=== PATIENT | male | born 1955 | race Caucasian/White ===

== ENCOUNTER 2016-12-01 03:44 | Inpatient (IN) | payer BC ==
[~2016-12-01] VITALS: Ht 175.3 cm; Wt 101.6 kg
[~2016-12-01 03:44] MED LIST: ACET-1256 PO; CLN200 PO; GLC500 PO; GLYUNK; LISI-461 PO; OMEG10007 PO; ZNTT/150 PO
[2016-12-01 04:18] LABS: BASO % 0.4 %; BASO ABS # 0.03 K/uL (0-0.2); COMPLETE YES; EOS % 1.4 %; HEMATOCRIT 44.3 % (42-52); IG% 0.6 %; LYMPH ABS # 1.23 K/uL (1.2-3.4); MEAN CELL VOLUME 86.4 fL (80-100); MEAN CORPUSCULAR HEMOGLOBIN 28.8 pg (25-34); MEAN CORPUSCULAR HGB CONC 33.4 g/dl (32-36); MEAN PLATELET VOLUME 10.8 fL (7.4-10.4); MONO % 10.4 %; NEUT % 70.2 %; PLATELET COUNT 239 K/uL (130-400); RED BLOOD COUNT 5.13 M/uL (4.7-6.1); WHITE BLOOD COUNT 7.23 K/uL (4.8-10.8)
[2016-12-01 04:42] LABS: INR 0.9 (0.9-1.1); PROTHROMBIN TIME (PATIENT) 9.4 SECONDS (9.0-12.0)
[2016-12-01] MEDS ORDERED: TRAM-10 PO (04:55)
[2016-12-01] MEDS ORDERED: GLYB5TAB8 PO (04:55)
[2016-12-01] MEDS ORDERED: ATOR10TA82 PO (04:55)
[2016-12-01] MEDS ORDERED: METF-384 PO (04:55)
[2016-12-01] MEDS ORDERED: SULI200T4 PO (04:55)
[2016-12-01 04:56] LABS: ALKALINE PHOSPHATASE 90 U/L (45-117); ALT/SGPT 31 U/L (12-78); BLOOD UREA NITROGEN 20 mg/dl (7-18); BUN/CREATININE RATIO 20.5 (10-20); CARBON DIOXIDE 26 mmol/L (21-32); CHLORIDE 107 mmol/L (98-107); CREATININE 0.96 mg/dl (0.60-1.40); GLUCOSE 189 mg/dl (70-99); SODIUM 142 mmol/L (136-145)
[2016-12-01 05:00] LABS: POTASSIUM 4.5 mmol/L (3.5-5.1)
[2016-12-01 05:09] LABS: AST/SGOT 16 U/L (15-37); CKMB/CK RATIO 3.3 (0-3.0)
[2016-12-01 05:35] LABS: URINE APPEARANCE CLEAR (CLEAR); URINE BILIRUBIN NEG (NEG); URINE COLOR YELLOW; URINE NITRITE NEG (NEG); URINE SPECIFIC GRAVITY 1.021 (1.000-1.030); UROBILINOGEN NEG (NEG); ZZUR CULT IF INDIC CLEAN CATCH NO
[2016-12-01 05:37] LABS: MANUAL MICROSCOPIC REQUIRED? NO; REVIEW REQ? NO
--- NOTE | 2016-12-01 06:35 | DIAGNOSTIC IMAGING REPORT ---
CHEST ONE VIEW PORTABLE CLINICAL HISTORY: Atypical chest pain and shortness of breath COMPARISON STUDY: May 2008 FINDINGS: The heart is at the upper limits of normal in size. There is no overt failure. There is no focal pulmonary consolidation. There are no pleural effusions.[ IMPRESSION: No active disease in the chest. Electronically signed by: Kiran Harrington M.D. 12/01/2016 6:33 AM Dictated Date/Time: 12/01/2016 6:33 AM
[2016-12-01 06:52] LABS: POINT OF CARE TROPONIN I 0.01 ng/ml (0-0.045)
--- NOTE | 2016-12-01 07:33 | EMERGENCY ROOM VISIT NOTE ---
History Report prepared by Rodo: Jeet Ramos Under the Supervision of: Dr. Claire Paz M.D. 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 Patient was given 324 ASA enroute with EMS History of Present Illness The patient is a 61 year old male who presents to the Emergency Room by EMS with complaints of an episode of chest pain occurring shortly prior to arrival. He has a history of diabetes, hyperlipidemia, and hypertension. He was given aspirin en route. 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 He also complains of shortness of breath and weakness. He denies any pain radiation. He denies any fevers. The patient states that he has been having similar symptoms with exertion for some time now. He states that his shortness of breath has persisted. Source of History: patient Onset: Shortly prior to arrival Position: chest Timing: resolved, other (episode) Associated Symptoms: + SOB, + weakness, No fevers Review of Systems See HPI for pertinent positives & negatives. A total of 10 systems reviewed and were otherwise negative. Past Medical & Surgical Medical Problems: (1) Diabetes (2) GERD (gastroesophageal reflux disease) (3) HTN (hypertension) (4) Hyperlipemia Surgical Problems: (1) S/P appendectomy (2) S/P lumbar fusion Family History No pertinent family history stated. Social History Smoking Status: Never Smoker Marital Status: Housing Status: lives with family Occupation Status: employed Current/Historical Medications Scheduled Atorvastatin (Lipitor), 10 MG PO DAILY Fish Oil ([place]-3), 1 CAP PO BID Glyburide (Micronase), 10 MG PO BID Lisinopril (Zestril), 10 MG PO DAILY Metformin Hcl (Glucophage), 1,000 MG PO BID Ranitidine (Zantac), 150 MG PO BID Sulindac (Clinoril), 200 MG PO BID Scheduled PRN Acetaminophen (Tylenol), 1,000 MG PO TID PRN for Pain or Fever Omeprazole (Prilosec), 20 MG PO DAILY PRN for Indigestion Tramadol (Ultram), 50 MG PO Q8H PRN for Pain Allergies Uncoded Allergies: STERIODS (Allergy, Unknown, "UNABLE TO USE DUE TO TB RX YEARS AGO"., ) Physical Exam Vital Signs Date Time Temp Pulse Resp B/P Pulse Ox O2 Delivery O2 Flow Rate FiO2 12/01/16 07:16 77 16 133/84 96 Room Air 12/01/16 06:32 74 20 136/82 96 Room Air 12/01/16 06:00 77 18 126/77 96 Room Air 12/01/16 04:30 75 20 138/78 97 Room Air 12/01/16 03:55 Room Air 12/01/16 03:54 Room Air 12/01/16 03:51 36.6 78 16 157/82 98 Room Air Physical Exam Vital signs reviewed. General: Obese, well-appearing male, in no significant distress. HEENT: No scleral icterus, PERRLA, neck supple. Atraumatic. Cardiovascular: Regular rate and rhythm, no extra sounds. Pulmonary: Clear to auscultation bilaterally, normal work of breathing. Abdomen: Soft, nontender, nondistended, positive bowel sounds. Musculoskeletal: Atraumatic, no peripheral edema. Neurologic: Patient awake alert and oriented x 3, full strength in all 4 extremities. Cranial nerves 2 through 12 grossly intact. Skin: Warm, dry, no rash Medical Decision & Procedures ER Provider Diagnostic Interpretation: One View Chest X-ray interpreted by me: mild pulmonary vascular congestion. Laboratory Results Test 12/01/16 03:07 12/01/16 05:10 12/01/16 06:31 RDW Standard Deviation 45.9 fL (36.4-46.3) RDW Coefficient of Variation 14.5 % (11.5-14.5) White Blood Count 7.23 K/uL (4.8-10.8) Red Blood Count 5.13 M/uL (4.7-6.1) Hemoglobin 14.8 g/dL (14.0-18.0) Hematocrit 44.3 % (42-52) Mean Corpuscular Volume 86.4 fL (80-100) Mean Corpuscular Hemoglobin 28.8 pg (25-34) Mean Corpuscular Hemoglobin Concent 33.4 g/dl (32-36) Platelet Count 239 K/uL (130-400) Mean Platelet Volume 10.8 fL (7.4-10.4) Neutrophils (%) (Auto) 70.2 % Lymphocytes (%) (Auto) 17.0 % Monocytes (%) (Auto) 10.4 % Eosinophils (%) (Auto) 1.4 % Basophils (%) (Auto) 0.4 % Neutrophils # (Auto) 5.08 K/uL (1.4-6.5) Lymphocytes # (Auto) 1.23 K/uL (1.2-3.4) Monocytes # (Auto) 0.75 K/uL (0.11-0.59) Eosinophils # (Auto) 0.10 K/uL (0-0.5) Basophils # (Auto) 0.03 K/uL (0-0.2) Immature Granulocyte % (Auto) 0.6 % Immature Granulocyte # (Auto) 0.04 K/uL (0.00-0.02) Prothrombin Time 9.4 SECONDS (9.0-12.0) Prothromb Time International Ratio 0.9 (0.9-1.1) Activated Partial Thromboplast Time 26.0 SECONDS (21.0-31.0) Partial Thromboplastin Ratio 1.0 Est Creatinine Clear Calc Drug Dose 94.2 ml/min Total Bilirubin 0.3 mg/dl (0.2-1) Direct Bilirubin 0.1 mg/dl (0-0.2) Aspartate Amino Transf (AST/SGOT) 16 U/L (15-37) Alanine Aminotransferase (ALT/SGPT) 31 U/L (12-78) Alkaline Phosphatase 90 U/L (45-117) Total Creatine Kinase 211 U/L (39-308) Pro-B-Type Natriuretic Peptide 43 pg/ml (0-900) Total Protein 7.9 gm/dl (6.4-8.2) Albumin 4.0 gm/dl (3.4-5.0) Urine Color YELLOW Urine Appearance CLEAR (CLEAR) Urine pH 5.0 (4.5-7.5) Urine Specific [place] 1.021 (1.000-1.030) Urine Protein NEG (NEG) Urine Glucose (UA) NEG (NEG) Urine Ketones NEG (NEG) Urine Occult Blood NEG (NEG) Urine Nitrite NEG (NEG) Urine Bilirubin NEG (NEG) Urine Urobilinogen NEG (NEG) Urine Leukocyte Esterase NEG (NEG) Bedside D-Dimer 159 ng/mlFEU (0-450) Bedside Troponin I 0.010 ng/ml (0-0.045) Laboratory results per my review. 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 The patient was evaluated in room B12B. A complete history and physical examination was performed. 726: Upon reevaluation, the patient is resting comfortably. I discussed laboratory and radiographic results with him. He verbalized agreement of the treatment plan. I spoke with Corina RIVERA of the [facility] Hospitalist Service. The patient will be evaluated for further management and care. Medical Decision DDx: Acute coronary syndrome, pulmonary embolus, aortic dissection, musculoskeletal pain, pneumonia, pleural effusion, pneumothorax This patient was evaluated and appeared to be in no distress. IV access was obtained and laboratory work was drawn. EKG was obtained and reveals no evidence of acute ischemia. Laboratory work is negative. Patient did receive oral aspirin in route. Laboratory work reveals negative cardiac enzymes, negative d-dimer. Patient's case was discussed with the hospitalist service and secondary to his diabetes and chest complaints, he will be evaluated for further management. Consults Time Called: 715 Consulting Physician: Corina RIVERA -Mic Returned Call: [phone] I reviewed the patient's case with Corina RIVERA. Mic will evaluate the patient for further management. Impression Primary Impression: Exertional chest pain Scribe Attestation The scribe's documentation has been prepared under my direction and personally reviewed by me in its entirety. I confirm that the note above accurately reflects all work, treatment, procedures, and medical decision making performed by me. Departure Information Dispostion Being Evaluated By Hospitalist Referrals Nitesh Sellers D.O. (PCP) Patient Instructions My [facility]
[2016-12-01] MEDS ORDERED: OMEP40CA41 PO (08:27)
[2016-12-01] MEDS ORDERED: GLUCAGON FOR INJ 1 MG VIAL SQ PRN (08:30)
[2016-12-01] MEDS ORDERED: ACETAMINOPHEN 325 MG TAB PO PRN (08:30)
[2016-12-01] MEDS ORDERED: GLUCOSE 10 TABS/TUBE PO PRN (08:30)
[2016-12-01] MEDS ORDERED: GLUCOSE 40% GEL 15 GM TUBE PO PRN (08:30)
[2016-12-01] MEDS ORDERED: TRAMADOL HCL 50 MG TAB PO PRN (08:30)
[2016-12-01] MEDS ORDERED: NITROGLYCERIN 0.4 MG SL PER TAB CHARGE SL PRN (08:30)
[2016-12-01] MEDS ORDERED: DEXTROSE 50% 50 ML SYR IV PRN (08:30)
[2016-12-01] MEDS ORDERED: ONDANSETRON INJ 2 MG/ML 2 ML VIAL IV PRN (08:30)
--- NOTE | 2016-12-01 08:45 | History and Physical ---
History & Physical Date & Time of Service: Dec 01, 2016 at 08:32 Chief Complaint: Chest Pain, Shortness of Breath Primary Care Physician: Nitesh Sellers D.O. History of Present Illness 61 year old male who presents to the ER with chest pain and shortness of breath. 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 He describes the chest pain as a pressure and rated it #7/10 at its worst. He reports associated shortness of breath and lightheadedness. He reports the pain resolved with rest but the shortness of breath persisted for a bit. He reports the shortness of breath resolved in the ambulance ride to the hospital. He denies associated nausea or diaphoresis. Patient reports he does get exertional chest pain a few times per week however is not as severe as it was today. He reports he had a stress test a couple of years ago for similar symptoms. Over the past 6 months he has noted leg edema with long periods of walking. He denies orthopnea. He reports he otherwise has been feeling well recently. No abdominal pain, vomiting, or diarrhea. He denies fever and chills. No urinary symptoms. In the ER, patient is currently chest pain free. His initial troponin is negative and EKG is unchanged from prior. Past Medical/Surgical History Medical Problems: (1) Diabetes Status: Chronic (2) GERD (gastroesophageal reflux disease) Status: Chronic (3) HTN (hypertension) Status: Chronic (4) Hyperlipemia Status: Chronic Surgical Problems: (1) S/P appendectomy Status: Chronic (2) S/P lumbar fusion Status: Chronic Family History FH: heart disease FATHER (stents placed in his 70s) BROTHER (stents placed in his late 40s-early 50s) Social History Smoking Status: Never Smoker Alcohol Use: occasionally Occupational Status: employed Immunizations History of Influenza Vaccine: Yes Influenza Vaccine Date: May 30, 2016 History of Tetanus Vaccine?: Yes Tetanus Immunization Date: Feb 23, 2008 History of Pneumococcal: Yes Pneumococcal Date: Aug 25, 2006 Multi-Drug Resistant Organisms History of MDRO: No Allergies Uncoded Allergies: STERIODS (Allergy, Unknown, "UNABLE TO USE DUE TO TB RX YEARS AGO"., ) Home Medications Scheduled Atorvastatin (Lipitor), 10 MG PO DAILY Fish Oil ([place]-3), 1 CAP PO BID Glyburide (Micronase), 10 MG PO BID Lisinopril (Zestril), 10 MG PO DAILY Metformin Hcl (Glucophage), 1,000 MG PO BID Ranitidine (Zantac), 150 MG PO BID Sulindac (Clinoril), 200 MG PO BID Scheduled PRN Acetaminophen (Tylenol), 1,000 MG PO TID PRN for Pain or Fever Omeprazole (Prilosec), 20 MG PO DAILY PRN for Indigestion Tramadol (Ultram), 50 MG PO Q8H PRN for Pain Review of Systems 10 point review of systems was completed with the pertinent positives and negatives noted per the HPI Physical Exam Vital Signs Date Time Temp Pulse Resp B/P Pulse Ox O2 Delivery O2 Flow Rate FiO2 12/01/16 07:42 65 16 126/65 98 Nasal Cannula 12/01/16 07:16 77 16 133/84 96 Room Air 12/01/16 06:32 74 20 136/82 96 Room Air 12/01/16 06:00 77 18 126/77 96 Room Air 12/01/16 04:30 75 20 138/78 97 Room Air 12/01/16 03:55 Room Air 12/01/16 03:54 Room Air 12/01/16 03:51 36.6 78 16 157/82 98 Room Air General Appearance: no apparent distress Head: normocephalic Eyes: normal inspection ENT: hearing grossly normal Neck: supple, no JVD Respiratory/Chest: lungs clear, normal breath sounds, no respiratory distress Cardiovascular: regular rate, rhythm, no edema, normal peripheral pulses Abdomen/GI: normal bowel sounds, non tender, soft Extremities/Musculoskelatal: normal inspection, no calf tenderness Neurologic/Psych: no motor/sensory deficits, alert, normal mood/affect, oriented x 3 Skin: normal color, warm/dry Diagnostics Laboratory Results Results Past 24 Hours Test 12/01/16 03:07 12/01/16 05:10 12/01/16 06:31 Range/Units White Blood Count 7.23 4.8-10.8 K/uL Red Blood Count 5.13 4.7-6.1 M/uL Hemoglobin 14.8 14.0-18.0 g/dL Hematocrit 44.3 42-52 % Mean Corpuscular Volume 86.4 80-100 fL Mean Corpuscular Hemoglobin 28.8 25-34 pg Mean Corpuscular Hemoglobin Concent 33.4 32-36 g/dl Platelet Count 239 130-400 K/uL Mean Platelet Volume 10.8 7.4-10.4 fL Neutrophils (%) (Auto) 70.2 % Lymphocytes (%) (Auto) 17.0 % Monocytes (%) (Auto) 10.4 % Eosinophils (%) (Auto) 1.4 % Basophils (%) (Auto) 0.4 % Neutrophils # (Auto) 5.08 1.4-6.5 K/uL Lymphocytes # (Auto) 1.23 1.2-3.4 K/uL Monocytes # (Auto) 0.75 0.11-0.59 K/uL Eosinophils # (Auto) 0.10 0-0.5 K/uL Basophils # (Auto) 0.03 0-0.2 K/uL RDW Standard Deviation 45.9 36.4-46.3 fL RDW Coefficient of Variation 14.5 11.5-14.5 % Immature Granulocyte % (Auto) 0.6 % Immature Granulocyte # (Auto) 0.04 0.00-0.02 K/uL Prothrombin Time 9.4 9.0-12.0 SECONDS Prothromb Time International Ratio 0.9 0.9-1.1 Activated Partial Thromboplast Time 26.0 21.0-31.0 SECONDS Partial Thromboplastin Ratio 1.0 Sodium Level 142 136-145 mmol/L Potassium Level 4.5 3.5-5.1 mmol/L Chloride Level 107 98-107 mmol/L Carbon Dioxide Level 26 21-32 mmol/L Anion Gap 9.0 3-11 mmol/L Blood Urea Nitrogen 20 7-18 mg/dl Creatinine 0.96 0.60-1.40 mg/dl Est Creatinine Clear Calc Drug Dose 94.2 ml/min Estimated GFR () 98.5 Estimated GFR (Non- 85.0 BUN/Creatinine Ratio 20.5 10-20 Random Glucose 189 70-99 mg/dl Calcium Level 8.0 8.5-10.1 mg/dl Total Bilirubin 0.3 0.2-1 mg/dl Direct Bilirubin 0.1 0-0.2 mg/dl Aspartate Amino Transf (AST/SGOT) 16 15-37 U/L Alanine Aminotransferase (ALT/SGPT) 31 12-78 U/L Alkaline Phosphatase 90 45-117 U/L Total Creatine Kinase 211 39-308 U/L Creatine Kinase MB 6.9 0.5-3.6 ng/ml Creatine Kinase MB Ratio 3.3 0-3.0 Troponin I < 0.015 0-0.045 ng/ml Pro-B-Type Natriuretic Peptide 43 0-900 pg/ml Total Protein 7.9 6.4-8.2 gm/dl Albumin 4.0 3.4-5.0 gm/dl Urine Color YELLOW Urine Appearance CLEAR CLEAR Urine pH 5.0 4.5-7.5 Urine Specific [place] 1.021 1.000-1.030 Urine Protein NEG NEG Urine Glucose (UA) NEG NEG Urine Ketones NEG NEG Urine Occult Blood NEG NEG Urine Nitrite NEG NEG Urine Bilirubin NEG NEG Urine Urobilinogen NEG NEG Urine Leukocyte Esterase NEG NEG Bedside D-Dimer 159 0-450 ng/mlFEU Bedside Troponin I 0.010 0-0.045 ng/ml Diagnostic Radiology CXR IMPRESSION: No active disease in the chest. Impression Assessment and Plan CHEST PAIN - admit to tele - patient presenting with exertional chest pain with associated shortness of breath and lightheadedness, relieved with rest - risk factors: HTN, DM, HLD, + family history - stress 06/2015 - negative for ischemia - initial troponin negative, EKG unchanged from prior - continue to cycle cardiac enzymes, check resting echo - s/p ASA with EMS, will continue with 81mg daily - continue statin - cardio consult, input appreciated HTN - BP controlled, continue Lisinopril DM - hgb a1c 6.4 08/2016 - hold oral agents and utilize SSI while hospitalized HLD - continue statin DVT PROPHYLAXIS - SQ Lovenox DISPO - The patient will be placed as observation status for now until further work up is complete. Attending Note: Patient is a 61 Yr old male with with PMH DM II, HTN, HLP and positive family history of heart disease presents with history of retrosternal, squeezing, non radiating chest pain on exertion which relieved with rest. Associated symptoms are SOB, dizziness. Had similar chest pain few weeks ago. Also noted mild b/l leg swelling since about 6 months. Currently chest pain free. Initial troponin, EKG negative for sings of Ischemia. Physical Exam: Vitals signs as noted above General Appearance:Moderately built and nourished, no apparent distress Head: normocephalic, Atraumatic Eyes: normal inspection, EOMI, PERRLA, Anicteric Neck: supple, Trachea midline Respiratory/Chest: Normal breath sounds, CTA, No accessory muscle use Cardiovascular: S1, S2, No murmur Abdomen/GI:Soft, Non tender, Bowel sounds present Extremities/Musculoskelatal:normal inspection, trace b/l edema Neurologic/Psych:AAOX3, grossly no focal neurological deficits Skin:normal color,warm Assessment and Plan: Chest Pain: R/O ACS Risk factors: HTN, DM, HLD, + family history Trend cardiac enzymes, repeat EKG with chest pain May benefit from repeat stress test given risk factors, significant positive family history Cardiology consulted Aspirin, statins I personally reviewed the record. Patient is interviewed and examined at bedside. Patient's care is coordinated with Corina Reardon RESEARCH AGRICULTURAL ENGINEER. Please refer to the documentation above for details of patient's presentation and for discussion of other issues. VTE Prophylaxis VTE Risk Assessment Done? Y/N: Yes Risk Level: Moderate
[2016-12-01] MEDS ORDERED: IV FLUIDS COMPLETED PRN (09:15)
[2016-12-01] MEDS: INSULIN ASPART 100 UNITS/ML 3 ML PEN SC SCH ×3 (11:00→21:00)
[2016-12-01 11:37] VITALS: BP 122/97; PULSE 73; TEMP 36.6; O2SAT 95; Ht 175.3 cm; Wt 101.6 kg
--- NOTE | 2016-12-01 11:45 | CARDIOLOGY CONSULTATION ---
DATE OF CONSULTATION: 12/01/2016 HISTORY OF PRESENT ILLNESS: Grace Birmingham is a 61-year-old male seen in cardiology consultation per the request of Corina Reardon PA-C for the evaluation of chest discomfort. The patient's primary care provider is Dr. Nitesh Sellers. He did not have the previously established chronic relationship with cardiology. 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 this morning when he developed chest discomfort and shortness of breath with exertion. It is not unusual for him to have some degree of similar symptoms and he was actually assessed with a stress test in June 2015 as an outpatient for this. He noted associated lightheadedness and feels that the shortness of breath is worse than the left-sided chest discomfort. The chest discomfort was focal and was adjacent to the left border of his sternum. He rested and his symptoms subsequently improved. He was concerned enough that he called the ambulance and was brought to the Emergency Department. Initial vital signs included a blood pressure of 157/82, which has since improved to 123/72. His initial heart rate was 78 beats per minute. A single EKG is on his chart, which was performed on 12/01/2016 at 03:47 a.m. and revealed normal sinus rhythm at 83 beats per minute and age indeterminate inferior infarction pattern cannot be excluded based on possible Q-waves in lead III and aVF and poor R-wave progression was also noted in the anteroseptal leads. Compared to prior tracings dating back to 2007, there was no significant interval change. There were no acute ST changes. The patient's initial point of care troponin was normal at 0.10 ng/mL and he has since had a followup troponin, which was negative. During my assessment of the patient, he was feeling well. He was accompanied at the bedside by his spouse. PAST MEDICAL HISTORY: 1. Type 2 diabetes mellitus. 2. Hypertension. 3. Dyslipidemia. 4. Obesity. 5. Gastroesophageal reflux disease. PAST SURGICAL HISTORY: 1. Remote lumbar disk fusion. 2. Remote appendectomy, which was performed at age 9. FAMILY HISTORY: 1. His mother of a gynecologic malignancy, details are unknown to the patient. 2. The patient's father is alive in his 80s and has a history of cardiac stents when he was in his 70s. 3. The patient has 2 brothers, one of his brothers has a history of cardiac stents on 2 separate occasions placed in his late 40s or early 50s. SOCIAL HISTORY: The patient is a nonsmoker. He denies alcohol use with the exception of consuming 1 bottle of wine in the whole year interval. 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 ALLERGIES: HE HAS A MEDICATION INTOLERANCE TO STEROIDS, DETAILS UNKNOWN. HOME MEDICATIONS: Atorvastatin 10 mg by mouth daily, [place] 3 fish oil 1 tablet by mouth b.i.d., glyburide 10 mg p.o. b.i.d., lisinopril 10 mg daily, metformin 1000 mg b.i.d., Zantac 150 mg b.i.d., sulindac 200 mg by mouth b.i.d., acetaminophen 1000 mg 3 times per day as needed for pain, omeprazole 20 mg by mouth daily, and Ultram 50 mg q. 8 hours for pain. REVIEW OF SYSTEMS: A 10-point review of systems was reviewed and is negative with the exception of that noted in the history of present illness. PHYSICAL EXAMINATION: VITAL SIGNS: Temperature afebrile, heart rate 75, and blood pressure 123/72. GENERAL APPEARANCE: Awake and oriented x3, in no acute distress. HEENT: Extraocular muscles were intact. Pupils equal and reactive to light. NECK: No bruits or cervical lymphadenopathy. CARDIOVASCULAR: Regular rate. No murmurs, rubs or gallops. ABDOMEN: Positive bowel sounds. Soft, nontender, and nondistended. EXTREMITIES: No clubbing, cyanosis or edema. NEUROLOGIC: No focal deficits. PSYCHIATRIC: Appropriate affect and insight. DIAGNOSTIC DATA: EKG and cardiac enzymes as noted above. FINAL IMPRESSION: A 61-year-old male. 1. Chest discomfort with exertion with negative EKG x1 and negative cardiac enzymes x2. Symptoms relieved at present. 2. Cardiac risk factors of diabetes, hypertension, dyslipidemia, and family history of ischemic heart disease. RECOMMENDATIONS: At present, the patient is symptom free and his second set of cardiac enzymes is negative. I am going to advance his diet. Continue current medications including aspirin. The patient will be followed. If he remains chest pain free and his enzymes remain normal, we will plan on proceeding with a resting echocardiogram. If no acute changes in his resting wall motion are noted, would proceed with pharmacologic stress testing, likely a dobutamine stress echocardiogram. The patient had an exercise stress echocardiogram performed in 2014, but he notes that since then he has had progression of his osteoarthritis with hip and knee pain and he does not think he is able to walk sufficiently on the treadmill. Further recommendations will be forthcoming as his hospital stay develops. JASVIR
[2016-12-01] MEDS: OMEGA-3 (PURIFIED FISH OIL) 1 GM CAP PO SCH ×2 (13:38→21:10)
[2016-12-01] MEDS: ASPIRIN 81 MG ECTAB PO SCH (13:38)
[2016-12-01] MEDS: RANITIDINE HCL 150 MG TAB PO SCH ×2 (13:39→21:10)
[2016-12-01] MEDS: ENOXAPARIN 40 MG/0.4 ML SYR SC SCH (13:40)
[2016-12-01 14:31] VITALS: BP 127/75; PULSE 64; TEMP 36.3; O2SAT 98
[2016-12-01] MEDS: ATORVASTATIN 10 MG TAB PO SCH (14:43)
[2016-12-01] MEDS: LISINOPRIL 10 MG TAB PO SCH (14:44)
[2016-12-01 16:00] VITALS: O2SAT 98
[2016-12-01 20:00] VITALS: O2SAT 98
[2016-12-01 20:03] VITALS: BP 110/68; PULSE 71; TEMP 36.8; O2SAT 94
[2016-12-02] VITALS (7 sets, daily range): BP systolic 110–137; BP diastolic 66–85; PULSE 66–76; TEMP 36.3–37; O2SAT 94–99
[2016-12-02 07:00] LABS: HEMATOCRIT 43.8 % (42-52); MEAN CELL VOLUME 85.4 fL (80-100); MEAN CORPUSCULAR HEMOGLOBIN 28.5 pg (25-34); MEAN CORPUSCULAR HGB CONC 33.3 g/dl (32-36); MEAN PLATELET VOLUME 10.7 fL (7.4-10.4); PLATELET COUNT 218 K/uL (130-400); RED BLOOD COUNT 5.13 M/uL (4.7-6.1); WHITE BLOOD COUNT 6.13 K/uL (4.8-10.8)
[2016-12-02 07:33] LABS: BUN/CREATININE RATIO 18.1 (10-20); CALCIUM 8.9 mg/dl (8.5-10.1); CREATININE 0.85 mg/dl (0.60-1.40); POTASSIUM 4.1 mmol/L (3.5-5.1)
[2016-12-02 07:37] LABS: CHOLESTEROL/HDL RATIO 4.4
[2016-12-02] MEDS: ASPIRIN 81 MG ECTAB PO SCH (08:55)
[2016-12-02] MEDS: ATORVASTATIN 10 MG TAB PO SCH (08:55)
[2016-12-02] MEDS: OMEGA-3 (PURIFIED FISH OIL) 1 GM CAP PO SCH ×2 (08:55→21:02)
[2016-12-02] MEDS: LISINOPRIL 10 MG TAB PO SCH (08:55)
[2016-12-02] MEDS: RANITIDINE HCL 150 MG TAB PO SCH ×2 (08:55→21:02)
[2016-12-02] MEDS: ENOXAPARIN 40 MG/0.4 ML SYR SC SCH (08:56)
[2016-12-02] MEDS: INSULIN ASPART 100 UNITS/ML 3 ML PEN SC SCH ×4 (09:00→21:00)
[2016-12-02] MEDS ORDERED: DOBUTamine HCL 12.5 MG/ML 20 ML VIAL ONE (10:20)
[2016-12-02] MEDS ORDERED: ATROPINE SULFATE 0.1 MG/ML 5ML SYR ONE (10:20)
[2016-12-02] MEDS ORDERED: METOPROLOL TARTRATE 1 MG/ML VIAL ONE (10:20)
--- NOTE | 2016-12-02 11:10 | Cardiology Follow-Up ---
Subjective General Date of Service: Dec 02, 2016. Chief Complaint: follow up chest discomfort Pt evaluation today including: conversation w/ patient, physical exam History of Present Illness The patient is a 61 year old male seep prior to, during and after dobutamine stress echocardiogram. No CP overnight. Noted mild dizziness this am. EKG and troponin are negative. Allergies Uncoded Allergies: STERIODS (Allergy, Unknown, "UNABLE TO USE DUE TO TB RX YEARS AGO"., ) Social History Smoking Status: Never Smoker Hx Tobacco Use In Past Year?: No Hx Alcohol Use - Type And Amou: No Hx Substance Use - Type And Am: No Physical Exam Vital Signs Last Vital Signs Documentation Date Time Temp Pulse Resp B/P Pulse Ox O2 Delivery O2 Flow Rate FiO2 12/02/16 08:00 Room Air 12/02/16 07:20 36.3 71 22 117/66 94 71 Physical Exam Constitutional: Level of Distress: NAD Neck: supple Lungs: Auscultation: no wheezing, no rales/crackles Cardiovascular: Heart Auscultation: RRR, no murmurs, no rubs Extremities: no cyanosis, no edema Neurologic: Gait & Station: pertinent finding (no focal deficits ) Assessment and Plan Assessment and Plan Preliminary DSE report: Normal EKG and echocardiographic response, however patient's presenting symptoms of chest pressure were reproduced. Patient described profound 7/10 chest discomfort that worsened with progressive administration of dobutamine. Test terminated early due to chest pressure. Impression: Chest pressure, risk factors of DM, HTN, dyslipidemia, family h/o CAD in father and brother -Presenting symptoms reproduced with dobutamine administration in setting of normal EKG and and normal stress wall motion. Clinical presentation favors high likelihood of causative CAD , despite normal images. Plan: Pt's symptoms have resolved post procedure. Will advance diet and make NPO after MN , for cardiac cath on 12/03. Laboratory Results Last 24 Hours Test 12/01/16 14:49 12/01/16 15:00 12/01/16 15:15 12/01/16 17:38 Bedside Glucose 92 mg/dl 124 mg/dl Creatine Kinase MB Ratio Creatine Kinase MB 5.0 ng/ml Troponin I < 0.015 ng/ml Test 12/01/16 20:17 12/02/16 06:06 12/02/16 06:26 Bedside Glucose 143 mg/dl 164 mg/dl White Blood Count 6.13 K/uL Red Blood Count 5.13 M/uL Hemoglobin 14.6 g/dL Hematocrit 43.8 % Mean Corpuscular Volume 85.4 fL Mean Corpuscular Hemoglobin 28.5 pg Mean Corpuscular Hemoglobin Concent 33.3 g/dl RDW Standard Deviation 45.1 fL RDW Coefficient of Variation 14.3 % Platelet Count 218 K/uL Mean Platelet Volume 10.7 fL Sodium Level 139 mmol/L Potassium Level 4.1 mmol/L Chloride Level 104 mmol/L Carbon Dioxide Level 28 mmol/L Anion Gap 7.0 mmol/L Blood Urea Nitrogen 15 mg/dl Creatinine 0.85 mg/dl Est Creatinine Clear Calc Drug Dose 106.4 ml/min Estimated GFR () 109.0 Estimated GFR (Non- 94.0 BUN/Creatinine Ratio 18.1 Random Glucose 175 mg/dl Calcium Level 8.9 mg/dl Triglycerides Level 149 mg/dl Cholesterol Level 140 mg/dl HDL Cholesterol 32 mg/dl LDL Cholesterol, Calculated 78 mg/dl VLDL Cholesterol, Calculated 30 mg/dl Cholesterol/HDL Ratio 4.4
[2016-12-02] MEDS ORDERED: PERFLUTREN LIPID MICROSPHERE (DEFINITY) IV ONE (11:14)
--- NOTE | 2016-12-02 13:49 | Progress Note ---
Internal Med Progress Note Date of Service: Dec 02, 2016. Provider Documentation: SUBJECTIVE: Patient is seen and examined at bedside. Patient had dizziness this morning and had recurrence of chest pain with dobutamine administration during stress test today. Currently denies any chest pain, dizziness, palpitations, SOB. OBJECTIVE: Vital Signs-as noted below General Appearance:Moderately built and nourished, no apparent distress Head: normocephalic, Atraumatic Eyes: normal inspection, EOMI, PERRLA, Anicteric Neck: supple, Trachea midline Respiratory/Chest: Normal breath sounds, CTA, No accessory muscle use Cardiovascular: S1, S2, No murmur Abdomen/GI:Soft, Non tender, Bowel sounds present Extremities/Musculoskelatal:normal inspection, trace b/l edema Neurologic/Psych:AAOX3, grossly no focal neurological deficits Skin:normal color,warm Lab data as noted below. ASSESSMENT & PLAN: Chest Pain: R/O ACS Risk factors: HTN, DM, HLD, + family history Troponin X2: Negative Appreciate Cardiology help Continue Aspirin, statins Symptoms reproducible with dobutamine administration Normal EKG and and normal stress wall motion Planned for cardiac cath tomorrow NPO after midnight HTN controlled continue Lisinopril DM Last hgb a1c 6.4 08/2016 hold oral agents Continue SSI, Accu checks HLD continue statin DVT PROPHYLAXIS SQ Lovenox DISPOSITION Continue monitoring in Tele Vital Signs: Date Time Temp Pulse Resp B/P Pulse Ox O2 Delivery O2 Flow Rate FiO2 12/02/16 12:02 36.5 70 18 131/81 99 Room Air 12/02/16 12:00 Room Air 12/02/16 08:00 Room Air 12/02/16 07:20 36.3 71 22 117/66 94 Room Air 71 12/02/16 04:30 36.4 66 18 137/85 97 Room Air 12/02/16 04:00 Room Air 12/02/16 00:17 37.0 73 16 110/67 94 Room Air 12/02/16 00:00 Room Air 12/01/16 20:03 36.8 71 18 110/68 94 Room Air 12/01/16 20:00 98 Room Air 12/01/16 16:00 98 Room Air 12/01/16 14:31 36.3 64 20 127/75 98 Room Air Lab Results: Results Past 24 Hours Test 12/01/16 14:49 3/28/17 15:00 12/01/16 15:15 12/01/16 17:38 Range/Units Bedside Glucose 92 124 70-99 mg/dl Creatine Kinase MB Ratio 0-3.0 Creatine Kinase MB 5.0 0.5-3.6 ng/ml Troponin I < 0.015 0-0.045 ng/ml Test 12/01/16 20:17 12/02/16 06:06 12/02/16 06:26 12/02/16 11:44 Range/Units Bedside Glucose 143 164 118 70-99 mg/dl White Blood Count 6.13 4.8-10.8 K/uL Red Blood Count 5.13 4.7-6.1 M/uL Hemoglobin 14.6 14.0-18.0 g/dL Hematocrit 43.8 42-52 % Mean Corpuscular Volume 85.4 80-100 fL Mean Corpuscular Hemoglobin 28.5 25-34 pg Mean Corpuscular Hemoglobin Concent 33.3 32-36 g/dl RDW Standard Deviation 45.1 36.4-46.3 fL RDW Coefficient of Variation 14.3 11.5-14.5 % Platelet Count 218 130-400 K/uL Mean Platelet Volume 10.7 7.4-10.4 fL Sodium Level 139 136-145 mmol/L Potassium Level 4.1 3.5-5.1 mmol/L Chloride Level 104 98-107 mmol/L Carbon Dioxide Level 28 21-32 mmol/L Anion Gap 7.0 3-11 mmol/L Blood Urea Nitrogen 15 7-18 mg/dl Creatinine 0.85 0.60-1.40 mg/dl Est Creatinine Clear Calc Drug Dose 106.4 ml/min Estimated GFR () 109.0 Estimated GFR (Non- 94.0 BUN/Creatinine Ratio 18.1 10-20 Random Glucose 175 70-99 mg/dl Calcium Level 8.9 8.5-10.1 mg/dl Triglycerides Level 149 0-150 mg/dl Cholesterol Level 140 0-200 mg/dl HDL Cholesterol 32 mg/dl LDL Cholesterol, Calculated 78 mg/dl VLDL Cholesterol, Calculated 30 mg/dl Cholesterol/HDL Ratio 4.4
--- NOTE | 2016-12-02 13:56 | DOBUTAMINE ECHO ---
*NOTICE TO RECEIVING DEMOCRAT AGENCY This information is strictly Confidential and protected under [place] law. [place] law prohibits you from making any further disclosure of this information unless further disclosure is expressly permitted by the written consent of the person to whom it pertains or is authorized by law. A general authorization for the release of medical or other information is not sufficient for this purpose. Hospital accepts no responsibility if the information is made available to any other person, INCLUDING THE PATIENT. Interpretation Summary * Name: ELIZABETH LEZAMA Study Date: 12/02/2016 08:53 AM BP: 139/85 mmHg * Patient Location: [facility] HR: 72 * : 1955 (M/d/yyyy) Gender: Male Height: 69 in * Age: 61 yrs Ethnicity: CA Weight: 220 lb * Ordering Physician: Corina Reardon * Referring Physician: Self, Referred * Performed By: Arelis Rich RCS * * Reason For Study: CHEST PAIN * BSA: 2.2 m2 * The study was technically adequate. * -- Conclusions -- * STRESS STUDY: * Normal ECG and echocardiographic response to pharmacologic stress. * The patient's presenting symptom of chest pressure was reproduced and progressed from a 4/10 intensity to a 7/10 intensity with increased dobutamine dose. * The test was therefore terminated due to chest pressure with the patient having achieved a maximum heart rate of 135 bpm which is 77% of the age predicted maximum. * Despite normal wall motion, the clinical presentation is suggestive of significant underlying coronary heart disease. * RESTING STUDY: * There is mild concentric left ventricular hypertrophy. * The LV Ejection Fraction = 60-65%. * Grade I diastolic dysfunction, (abnormal relaxation pattern). * There is no significant valvular heart disease. Procedure Details * DOBUTAMINE ECHO, CPT#10836 * One vial of Definity ultrasound contrast was diluted in normal saline to a total volume of 10 ml. A total of '4' ml of solution was administered during imaging. * Lot # [id number] of Definity utilized for procedure. * Expiration date DEC 22. * The attending nurse who injected the contrast agent was SHAKIRA STANFORD CPL, RN. * ECHOEX, CPT #[id number] * ECHO DOPPLER, CPT #[id number] * ECHO COLOR FLOW, CPT #[id number] Left Ventricle * The left ventricle is normal in size. * There is mild concentric left ventricular hypertrophy. * Left ventricular systolic function is normal. * Ejection Fraction = 60-65%. * Resting wall motion: Normal. Stress wall motion: Appropriate increase in Left ventricular systolic function and decrease in cavity size. No stress induced segmental wall motion abnormalities. Right Ventricle * The right ventricle is normal in size and function. Atria * The left atrial size is normal. * Right atrial size is normal. * No ASD detected; PFO is not assessed. Mitral Valve * The mitral valve is normal. * There is no mitral valve stenosis. * There is trace mitral regurgitation. Tricuspid Valve * The tricuspid valve is normal. * There is no tricuspid stenosis. * There is trace tricuspid regurgitation. Aortic Valve * The aortic valve is trileaflet. * No hemodynamically significant valvular aortic stenosis. * No aortic regurgitation is present. Pulmonic Valve * The pulmonic valve is not well visualized. Great Vessels * The aortic root is normal size. Pericardium * There is no pericardial effusion. Stress Parameters * Normal baseline electrocardiogram. * The stress ECG response was normal * Rare PVCs were noted one the stress ECG including a venticular couplet. * The stress portion of this study was personally supervised by the undersigned interpreting physician. * Rest heart rate was '72' BPM. * Rest blood pressure was '139/85' * Maximum heart rate achieved was 122 bpm. * Maximum heart rate was 76 % of maximum age-predicted heart rate. * Maximum blood pressure was '169/95' * Maximum Dobutamine infusion rate was '30' mcg/kg/min. * A total of 0 mg of intravenous Atropine was used to supplement Dobutamine for heart rate response. * Dobutamine infusion was terminated due to symptoms * A total of 5.0 mg of IV Metoprolol was administered to reverse Dobutamine-induced tachycardia. Left Ventricular Diastolic Function * Grade I diastolic dysfunction, (abnormal relaxation pattern). MMode 2D Measurements and Calculations IVSd 1.6 cm IVSs 2.0 cm LVIDd 3.9 cm LVIDs 2.6 cm LVPWd 1.2 cm LVPWs 1.5 cm IVS/LVPW 1.3 FS 33.9 % EDV(Teich) 64.9 ml ESV(Teich) 23.7 ml EF(Teich) 63.5 % EDV(cubed) 58.2 ml ESV(cubed) 16.8 ml EF(cubed) 71.1 % % IVS thick 25.4 % % LVPW thick 27.4 % LV mass(C)d 196.2 grams LV mass(C)dI 91.2 grams/m\S\2 LV mass(C)s 171.6 grams LV mass(C)sI 79.8 grams/m\S\2 SV(Teich) 41.2 ml SI(Teich) 19.2 ml/m\S\2 SV(cubed) 41.4 ml SI(cubed) 19.2 ml/m\S\2 Ao root diam 4.0 cm Ao root area 12.5 cm\S\2 ACS 2.5 cm LA dimension 3.8 cm LA/Ao 0.95 LVOT diam 2.0 cm LVOT area 3.0 cm\S\2 LVAd ap4 29.6 cm\S\2 LVLd ap4 7.9 cm EDV(MOD-sp4) 89.6 ml EDV(sp4-el) 94.6 ml LVAs ap4 19.2 cm\S\2 LVLs ap4 6.7 cm ESV(MOD-sp4) 46.6 ml ESV(sp4-el) 46.3 ml EF(MOD-sp4) 48.0 % EF(sp4-el) 51.0 % LVAd ap2 32.8 cm\S\2 LVLd ap2 8.1 cm EDV(MOD-sp2) 106.0 ml EDV(sp2-el) 112.6 ml LVAs ap2 19.1 cm\S\2 LVLs ap2 6.3 cm ESV(MOD-sp2) 47.7 ml ESV(sp2-el) 49.4 ml EF(MOD-sp2) 55.0 % EF(sp2-el) 56.1 % LVLd %diff 3.0 % EDV(MOD-bp) 99.0 ml LVLs %diff -7.34 % ESV(MOD-bp) 47.9 ml EF(MOD-bp) 51.6 % SV(MOD-sp4) 43.0 ml SI(MOD-sp4) 20.0 ml/m\S\2 SV(MOD-sp2) 58.3 ml SI(MOD-sp2) 27.1 ml/m\S\2 SV(MOD-bp) 51.1 ml SI(MOD-bp) 23.8 ml/m\S\2 SV(sp4-el) 48.2 ml SI(sp4-el) 22.4 ml/m\S\2 SV(sp2-el) 63.2 ml SI(sp2-el) 29.4 ml/m\S\2 Doppler Measurements and Calculations MV E max jessica 60.4 cm/sec MV A max jessica 81.4 cm/sec MV E/A 0.74 MV P1/2t max jessica 70.6 cm/sec MV P1/2t 108.0 msec MVA(P1/2t) 2.0 cm\S\2 MV dec slope 191.5 cm/sec\S\2 MV dec time 0.32 sec Ao V2 max 91.8 cm/sec Ao max PG 3.4 mmHg Ao max PG (full) 0.92 mmHg DAVID(V,A) 2.6 cm\S\2 DAVID(V,D) 2.6 cm\S\2 LV V1 max PG 2.4 mmHg LV V1 max 78.2 cm/sec PA V2 max 70.6 cm/sec PA max PG 2.0 mmHg TR max jessica 215.4 cm/sec
[2016-12-02] MEDS ORDERED: MAGNESIUM HYDROXIDE SUSP 30 ML UDC PO ONE (21:45)
[2016-12-02] MEDS: SODIUM CHLORIDE 0.9% 1000ML 1,000 ML IV SCH (23:38)
[2016-12-03] VITALS (14 sets, daily range): BP systolic 111–152; BP diastolic 67–89; PULSE 63–147; TEMP 36.2–36.5; O2SAT 93–99
[2016-12-03] MEDS ORDERED: NURSING VERBAL MED ORDER ONE (05:45)
[2016-12-03] MEDS ORDERED: INSULIN ASPART 100 UNITS/ML 3 ML PEN SC SCH (06:00)
[2016-12-03] MEDS ORDERED: ASPIRIN 81 MG CHEW PO SCH (07:00)
[2016-12-03] MEDS: ATORVASTATIN 10 MG TAB PO SCH (07:52)
[2016-12-03] MEDS: OMEGA-3 (PURIFIED FISH OIL) 1 GM CAP PO SCH ×2 (07:53→21:49)
[2016-12-03] MEDS: LISINOPRIL 10 MG TAB PO SCH (07:53)
[2016-12-03] MEDS: RANITIDINE HCL 150 MG TAB PO SCH ×2 (07:53→21:49)
[2016-12-03] MEDS: SODIUM CHLORIDE 0.9% 1000ML 1,000 ML IV SCH ×2 (10:00→20:52)
[2016-12-03] MEDS ORDERED: NiCARDipine HCL INJ 2.5 MG/ML 10 ML AMP ONE (10:30)
[2016-12-03] MEDS ORDERED: MIDAZOLAM HCL 1 MG/ML 2ML VIAL ONE ×4 (10:31→12:22)
[2016-12-03] MEDS ORDERED: FENTANYL CITRATE INJ 50 MCG/1 ML 2 ML VIAL ONE ×2 (10:31→11:44)
[2016-12-03] MEDS ORDERED: HEPARIN SOD (PORCINE) 1000 UNIT/ML 10 ML VIAL ONE ×2 (10:31→11:58)
[2016-12-03] MEDS ORDERED: NITROGLYCERIN/D5W 100MCG/ML 20ML SYR ONE (10:32)
--- NOTE | 2016-12-03 10:51 | PROGRESS NOTE ---
DATE: 12/03/2016 SUBJECTIVE: The patient is seen and examined at the bedside. Reports history of exertional chest discomfort for several months. A dobutamine stress echo was performed yesterday with reproduction of anginal symptoms at submaximal heart rate. The test was discontinued prematurely. The patient has been chest pain free overnight. is present at the bedside. No dysrhythmias on telemetry. REVIEW OF SYSTEMS: Pertinent positive noted above. A 4-system review including cardiovascular, pulmonary, gastroenterologic, neurologic, and endocrinologic systems are otherwise negative. MEDICATIONS: Reviewed via EMR. Please see list for details. LABORATORY DATA: White blood cell count 6.13, hemoglobin is 14.6, platelet count is 218. Sodium is 139, potassium 4.1, chloride 104, CO2 of 28, BUN is 15, creatinine 0.85. His LDL is 78. PHYSICAL EXAMINATION: VITAL SIGNS: Temperature is 36.4 degrees centigrade, pulse 74 beats per minute and regular, respiratory rate is 18 breaths per minute, blood pressure 124/76, SaO2 is 93% on room air. GENERAL: NAD, poor dentition, awake, alert and oriented x3. HEENT: Mucous membranes moist. No scleral icterus. NECK: Supple without JVD or HJR. No carotid bruit. HEART: Regular with a normal S1 and S2. No murmur, rub or gallop. LUNGS: Clear without rales, rhonchi or wheeze. ABDOMEN: Soft, nontender. No rebound or guarding. EXTREMITIES: Warm and dry without clubbing, cyanosis, or edema. Right upper extremity Tod test within normal limits. Palpable ulnar pulses bilaterally. NEUROLOGIC: Demonstrates no focal deficit. FINAL IMPRESSION: 1. A 61-year-old male, admitted with exertional chest discomfort. Stress test reproduced patient's anginal symptoms without echocardiographic evidence of ischemia at submaximal heart rate. 2. Diabetes type 2. 3. Dyslipidemia. 4. Hypertension. 5. Obesity. PLAN AND RECOMMENDATIONS: I had a long discussion with the patient and his regarding the results of his stress testing, exertional symptoms, and coronary risk factors. Recommend coronary angiography with left heart catheterization. Risks, benefits, alternatives to procedure were reviewed at length. The patient is agreeable. Aspirin 325 mg given this a.m. Other cardiovascular medications will be continued as noted in the EMR. The patient is a drug-eluting stent candidate. Further recommendations pending result of catheterization.
--- NOTE | 2016-12-03 11:18 | Procedure Note ---
Pre-Mod Sedation Assessment General Date of Moderate Sedation: Dec 03, 2016. Vital Signs: Vital Signs Past 12 Hours Date Time Temp Pulse Resp B/P Pulse Ox O2 Delivery O2 Flow Rate FiO2 12/03/16 08:00 Room Air 12/03/16 07:28 36.4 74 18 124/76 93 Room Air 12/03/16 05:18 36.4 73 20 131/83 98 Room Air 12/03/16 04:00 Room Air 12/03/16 00:16 36.2 63 16 111/74 95 Room Air 12/03/16 00:00 Room Air Review Cardiovascular: regular rate, rhythm, no edema, no gallop, no JVD, no murmur Abdomen: normal bowel sounds, non tender, soft Lungs: chest non-tender, lungs clear, no accessory muscle use Pre-Sedation Airway Assessment Oral Cavity: Chipped Teeth, Dental Abnormalities Short Thick Neck: No Hx of Sleep Apnea: No Smoking Status: Never Smoker ASA Classification: Class III Procedure Planning Contraindications-for Mod Sed: None Yes Notes The planned sedation has been discussed with the patient and consent obtained. I have identified the patient, determined the appropriateness of sedation and have assessed the patient immediately prior to the procedure. All medicine(s) and interventions are by my order.
[2016-12-03] MEDS ORDERED: ADENOSINE IV SOLN 3 MG/ML 20 ML VIAL ONE (11:43)
--- NOTE | 2016-12-03 11:48 | Cardiac Catheterization ---
Procedure Note Procedure Date Dec 03, 2016. Pre-Procedure Diagnosis Positive Stress Test AUC Score 8 Post-Procedure Diagnosis Severe CAD Procedure(s) Performed Coronary Angiography (Moderate sedation, start time 1040, stop time 1109.), Left Heart Cath [employer] [facility] Technician(s) Jenise HOWARD, Qualified monitoring nurse: Michelle Young RN Estimated Blood Loss 5cc Medication(s) Fentanyl, Heparin, Nicardipine, Nitroglycerin, Versed, Lidocaine 1% Summary of Findings Severe prox to mid RCA. 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 ACC Data Cardiac Status Clinical evaluation leading to the procedure CAD Presntation: Positive Stress Test Anginal Classification: CCS III Heart Failure: No Cardiogenic Shock w/in 24Hrs: No Cardiac Arrest w/in 24Hrs: No Imaging studies past 6 months: Yes Stress studies past 6 months: Yes Stress Echocardiogram: Yes - Indeterminant (Angina reproduced at submaximal heart rate.) Coronary Anatomy Dominant: Right Left Main (% Stenosis): Ostial (20% ostial taper), Proximal (0%), Mid (0%), Distal (0%) LAD (% Stenosis): Ostial (10-20%), Proximal (20%), Mid (60% at origin od second diagonal, followed by 40% tubular stenosis) D1 (% Stenosis): Ostial (0%), Proximal (10%), Mid (10%), Distal (10%) D2 (% Stenosis): Ostial (10%), Proximal (10%), Mid (0%), Distal (0%) Circumflex (% Stenosis): Ostial (0%), Proximal (10%), Mid (10%), Distal (30%) OM1 (% Stenosis): Ostial (80% small caliber vessel), Proximal (10%), Mid (10%) , Distal (10%) L PL1 (% Stenosis): Normal RCA (% Stenosis): Ostial (0%), Proximal (80%), Mid (10%), Distal (20%) R PDA (% Stenosis): Ostial (small vessel poorly visualized with HERIBERTO one flow ) R PL1 (% Stenosis): Ostial (Small vessel with mild diffuse luminal irregularities (10%)) R PL2 (% Stenosis): Ostial (Small vessel with mild diffuse luminal irregularities (10%)) AM (% Stenosis): Ostial (10%), Proximal (30%), Mid (0%), Distal (0%) Diagnostic Status: Elective Closure Device Percutaneous Entry Location: Radial Intraprocedure Events Significant Dissection: No Perforation: No
[2016-12-03] MEDS ORDERED: CLOPIDOGREL BISULFATE 300 MG TAB PO ONE (13:24)
--- NOTE | 2016-12-03 13:50 | Progress Note ---
Internal Med Progress Note Date of Service: Dec 03, 2016. Provider Documentation: SUBJECTIVE: Patient is seen and examined at bedside. Patient had cardiac cath and PCI done today. Seen after the procedure. Denies any chest pain, dizziness, palpitations , SOB. OBJECTIVE: Vital Signs-as noted below General Appearance:Moderately built and nourished, no apparent distress Head: normocephalic, Atraumatic Eyes: normal inspection, EOMI, PERRLA, Anicteric Neck: supple, Trachea midline Respiratory/Chest: Normal breath sounds, CTA, No accessory muscle use Cardiovascular: S1, S2, No murmur Abdomen/GI:Soft, Non tender, Bowel sounds present Extremities/Musculoskelatal:normal inspection, trace b/l edema Neurologic/Psych:AAOX3, grossly no focal neurological deficits Skin:normal color,warm Lab data as noted below. ASSESSMENT & PLAN: Angina: S/P PCI Risk factors: HTN, DM, HLD, + family history Troponin X2: Negative Normal EKG and and normal stress wall motion on stress test Appreciate Cardiology help Continue Aspirin, plavix, statins Cardiac Cath S/P PCI: POD #0 HTN controlled continue Lisinopril DM Last hgb a1c 6.4 08/2016 hold oral agents Continue SSI, Accu checks HLD continue statin DVT PROPHYLAXIS Lovenox on hold post procedure SCDs DISPOSITION Continue monitoring in Tele Vital Signs: Date Time Temp Pulse Resp B/P Pulse Ox O2 Delivery O2 Flow Rate FiO2 12/04/16 08:00 Room Air 12/04/16 07:52 36.6 75 18 126/78 95 Room Air 12/04/16 04:25 36.5 76 16 148/78 99 Room Air 12/04/16 04:00 99 Room Air 12/04/16 00:08 36.5 70 18 116/74 96 Room Air 12/04/16 00:00 96 Room Air 12/03/16 20:11 36.4 147 18 115/74 94 Room Air 12/03/16 20:00 94 Room Air 12/03/16 19:00 36.4 74 20 114/70 95 Room Air 12/03/16 18:15 82 16 116/67 99 Room Air 12/03/16 17:18 81 20 140/78 97 Room Air 12/03/16 16:20 74 18 132/80 99 Room Air 12/03/16 16:01 36.4 74 20 144/85 95 Room Air 12/03/16 15:54 74 20 150/80 97 Room Air 12/03/16 15:24 77 18 152/78 99 Room Air 12/03/16 15:11 Room Air 12/03/16 15:00 36.5 70 20 142/89 99 Room Air 12/03/16 14:45 36.5 64 20 143/87 98 Room Air 12/03/16 14:30 65 18 128/78 95 Room Air 12/03/16 14:15 64 16 136/80 95 Room Air 12/03/16 14:00 65 16 140/86 95 Room Air 12/03/16 13:45 65 16 150/98 100 Nasal Cannula 5 12/03/16 13:30 68 16 122/66 100 Nasal Cannula 5 12/03/16 13:20 66 13 120/85 100 Nasal Cannula 5 Lab Results: Results Past 24 Hours Test 12/03/16 11:36 12/03/16 11:57 12/03/16 12:39 12/03/16 14:58 Range/Units Kaolin Activated Coagulation Time 193 224 229 94-140 SECONDS Bedside Glucose 116 70-99 mg/dl Test 12/03/16 16:56 12/03/16 20:23 12/04/16 05:36 12/04/16 06:54 Range/Units Bedside Glucose 143 142 173 70-99 mg/dl White Blood Count 8.14 4.8-10.8 K/uL Red Blood Count 5.02 4.7-6.1 M/uL Hemoglobin 14.6 14.0-18.0 g/dL Hematocrit 42.8 42-52 % Mean Corpuscular Volume 85.3 80-100 fL Mean Corpuscular Hemoglobin 29.1 25-34 pg Mean Corpuscular Hemoglobin Concent 34.1 32-36 g/dl Platelet Count 222 130-400 K/uL Mean Platelet Volume 10.7 7.4-10.4 fL Neutrophils (%) (Auto) 77.2 % Lymphocytes (%) (Auto) 13.6 % Monocytes (%) (Auto) 8.4 % Eosinophils (%) (Auto) 0.5 % Basophils (%) (Auto) 0.2 % Neutrophils # (Auto) 6.28 1.4-6.5 K/uL Lymphocytes # (Auto) 1.11 1.2-3.4 K/uL Monocytes # (Auto) 0.68 0.11-0.59 K/uL Eosinophils # (Auto) 0.04 0-0.5 K/uL Basophils # (Auto) 0.02 0-0.2 K/uL RDW Standard Deviation 44.6 36.4-46.3 fL RDW Coefficient of Variation 14.2 11.5-14.5 % Immature Granulocyte % (Auto) 0.1 % Immature Granulocyte # (Auto) 0.01 0.00-0.02 K/uL Sodium Level 138 136-145 mmol/L Potassium Level 4.4 3.5-5.1 mmol/L Chloride Level 104 98-107 mmol/L Carbon Dioxide Level 30 21-32 mmol/L Anion Gap 4.0 3-11 mmol/L Blood Urea Nitrogen 14 7-18 mg/dl Creatinine 0.86 0.60-1.40 mg/dl Est Creatinine Clear Calc Drug Dose 106.0 ml/min Estimated GFR () 108.5 Estimated GFR (Non- 93.6 BUN/Creatinine Ratio 16.5 10-20 Random Glucose 171 70-99 mg/dl Calcium Level 8.6 8.5-10.1 mg/dl
[2016-12-03] MEDS ORDERED: SODIUM CHLORIDE 0.9% 1000ML 1,000 ML IV SCH (14:45)
[2016-12-03] MEDS ORDERED: ONDANSETRON INJ 2 MG/ML 2 ML VIAL IV PRN (14:45)
[2016-12-03] MEDS: INSULIN ASPART 100 UNITS/ML 3 ML PEN SC SCH ×2 (17:21→21:03)
--- NOTE | 2016-12-03 23:41 | Cardiac Catheterization ---
Procedure Note Procedure Date Dec 03, 2016. Pre-Procedure Diagnosis Angina, Positive Stress Test AUC Score 7 Post-Procedure Diagnosis Severe CAD, Successful PCI Procedure(s) Performed Drug Eluting Stent Sales And Customer Relations Rep Dr. Roberto Drafting Instructor(s) Jneise Estimated Blood Loss 35 Medication(s) Clopidogrel, Fentanyl, Heparin, Nicardipine, Nitroglycerin, Versed, Lidocaine 1% Summary of Findings Indication: Angina/Positive stress state Access: 6Fr Slender Right Radial Artery Catheters: JR4 guide, EBU 3.5 guide Findings: For full details of coronary angiography see cath report from Dr. Covington. Briefly, proximal RCA with 80-90% stenosis. Mid LAD with intermediate stenosis. -- PCI -- Antithrombotic therapy: Heparin, Clopidogrel Procedure: RCA Intervention-- RCA cannulated with JR4 guide BMW wire passed across proximal lesion into distal RCA/PLB Proximal RCA stented directly with 3.5 x 18 Resolute YUE Stent post-dilated with 3.5 noncompliant balloon IC vasodilators administered for spasm Post procedure HERIBERTO 3 flow, stent well expanded with minimal residual stenosis and no apparent cardiac complications. LAD intervention-- LM cannulated with EBU 3.5 guide FFR positive at 0.76 BMW wire passed across mid LAD lesion into distal vessel Mid LAD lesion predilated with 2.5 balloon Attempted to pass 3.5 x 22 Resolute YUE but would not pass tortuous/calcified mid segment Re-dilated with 2.5 and later 3.0 NC balloon Eventually able to deliver a 2.75 x 22 Resolute YUE across lesion with aid of a guideliner, and mailman wire Stent post-dilated with 3.5 NC balloon to high atmospheres IC vasodilators administered for spasm Post procedure HERIBERTO 3 flow, stent well expanded with minimal residual stenosis and no apparent cardiac complications. Arterial Closure: TR Band Summary: 1. Successful PCI of proximal RCA with 3.5 x 18 Resolute YUE 2. Successful PCI of calcified mid LAD with 2.75 x 22 Resolute YUE, post- dilated to 3.5 mm Recommendations: Admit to PCU for observation Loaded with 600 mg clopidogrel Continue dual-antiplatelet therapy with aspirin and clopidogrel for 1 year High-dose statin, cardiac rehab, and ASCVD risk factor modification per Dr. Covington Hemodynamics Rest Ao: 104/60/81 Final Ao: 115/58/85 LV: -- Recommendations PCI without planned CABG Specimens None Radiation Exposure (mGy) 8124 (Patient counseled on signs and symptoms of radiation injury) Contrast (mls) 270 Opti Fluids (cc crystalloids) 295 NSS Drains None Anesthesia Moderate (Start- 11:11, End - 13:20) 8 Versed, 175 Fentanyl Procedural Complication(s) None Disposition PCU ACC Data Cardiac Status Clinical evaluation leading to the procedure CAD Presntation: Stable angina, Positive Stress Test Anginal Classification: CCS III Heart Failure: No, NYHA Class: CCS I Cardiogenic Shock w/in 24Hrs: No Cardiac Arrest w/in 24Hrs: No Imaging studies past 6 months: Yes Stress studies past 6 months: Yes Standard Exercise Stress Test: No Stress Echocardiogram: Yes - Positive Stress Testing w/SPECT MPI: No Cardiac CTA: No Diagnostic Physician's Name: Melo Roberto MD Status: Elective Closure Device Percutaneous Entry Location: Radial Closure Device: Radial Band Recommendations: PCI without planned CABG PCI Indication: Stable Angina, + Stress Test Lesion Segment Name: Proximal RCA Culprit Artery: Yes Stenosis Prior to Rx (%): 80-90 Chronic Total Occlusion: No IVUS: No FFR: No Pre-Procedure HERIBERTO Flow: 3 Previously Treated Lesion: No Lesion Complexity: Non-High/Non-C Lesion Length (mm): 12 Thrombus Present: No Bifurcation Lesion: No Guidewire Across Lesion: Yes Guidewire: Post-Procedure HERIBERTO Flow: 3 Device(s) Deployed: Yes Lesion #2 Segment Name: mid LAD Culprit Artery: No Stenosis Prior to Rx (%): 60-70 Chronic Total Occlusion: No IVUS: No FFR: Yes Ratio: greater than 0.75% Pre-Procedure HERIBERTO Flow: 3 Previously Treated Lesion: No Lesion Complexity: High/C Lesion Length (mm): 18 Thrombus Present: No Bifurcation Lesion: No Guidewire Across Lesion: Yes Guidewire: Stenosis Post-Procedure (%): 0 Post-Procedure HERIBERTO Flow: 3 Device(s) Deployed: Yes Intraprocedure Events Significant Dissection: No Perforation: No
[2016-12-04] VITALS (8 sets, daily range): BP systolic 116–162; BP diastolic 74–81; PULSE 60–90; TEMP 36.5–36.8; O2SAT 95–99
[2016-12-04 06:09] LABS: BASO % 0.2 %; BASO ABS # 0.02 K/uL (0-0.2); COMPLETE YES; EOS % 0.5 %; HEMATOCRIT 42.8 % (42-52); IG% 0.1 %; LYMPH % 13.6 %; LYMPH ABS # 1.11 K/uL (1.2-3.4); MEAN CELL VOLUME 85.3 fL (80-100); MEAN CORPUSCULAR HEMOGLOBIN 29.1 pg (25-34); MEAN CORPUSCULAR HGB CONC 34.1 g/dl (32-36); MEAN PLATELET VOLUME 10.7 fL (7.4-10.4); MONO % 8.4 %; NEUT % 77.2 %; PLATELET COUNT 222 K/uL (130-400); RED BLOOD COUNT 5.02 M/uL (4.7-6.1); WHITE BLOOD COUNT 8.14 K/uL (4.8-10.8)
[2016-12-04] MEDS: SODIUM CHLORIDE 0.9% 1000ML 1,000 ML IV SCH (06:09)
[2016-12-04 06:43] LABS: BUN/CREATININE RATIO 16.5 (10-20); CALCIUM 8.6 mg/dl (8.5-10.1); CREATININE 0.86 mg/dl (0.60-1.40); POTASSIUM 4.4 mmol/L (3.5-5.1)
[2016-12-04] MEDS: OMEGA-3 (PURIFIED FISH OIL) 1 GM CAP PO SCH (07:34)
[2016-12-04] MEDS: RANITIDINE HCL 150 MG TAB PO SCH (07:34)
[2016-12-04] MEDS: LISINOPRIL 10 MG TAB PO SCH (08:13)
[2016-12-04] MEDS: INSULIN ASPART 100 UNITS/ML 3 ML PEN SC SCH ×2 (08:30→12:05)
--- NOTE | 2016-12-04 08:39 | Progress Note ---
Internal Med Progress Note Date of Service: Dec 04, 2016. Provider Documentation: SUBJECTIVE: Patient is seen and examined at bedside. Feels well this morning. Denies any chest pain, dizziness, palpitations, SOB. No events overnight. Had PCI yesterday. OBJECTIVE: Vital Signs-as noted below General Appearance:Moderately built and nourished, no apparent distress Head: normocephalic, Atraumatic Eyes: normal inspection, EOMI, PERRLA Neck: supple, Trachea midline Respiratory/Chest: Normal breath sounds, CTA, No accessory muscle use Cardiovascular: S1, S2, No murmur Abdomen/GI:Soft, Non tender, Bowel sounds present Extremities/Musculoskelatal:normal inspection, trace b/l edema Neurologic/Psych:AAOX3, grossly no focal neurological deficits Skin:normal color,warm Lab data as noted below. ASSESSMENT & PLAN: Angina: S/P PCI Risk factors: HTN, DM, HLD, + family history Troponin X2: Negative Normal EKG and and normal stress wall motion on stress test Appreciate Cardiology help Continue Aspirin, Plavix, statins, BB Cardiac Cath S/P PCI: POD #1 PCI of proximal RCA and mid LAD with YUE HTN controlled continue Lisinopril, BB DM Last hgb a1c 6.4 08/2016 hold oral agents Continue SSI, Accu checks HLD continue statin DVT PROPHYLAXIS Lovenox on hold post procedure SCDs DISPOSITION Plan to discharge home today Follow up with Marlo on 12/11/16 at 10:30 AM Follow up with cardiology on 12/17/16 at 1:25pm PROCEDURES: ECHO: * STRESS STUDY: * Normal ECG and echocardiographic response to pharmacologic stress. * The patient's presenting symptom of chest pressure was reproduced and progressed from a 4/10 intensity to a 7/10 intensity with increased dobutamine dose. * The test was therefore terminated due to chest pressure with the patient having achieved a maximum heart rate of 135 bpm which is 77% of the age predicted maximum. * Despite normal wall motion, the clinical presentation is suggestive of significant underlying coronary heart disease. * RESTING STUDY: * There is mild concentric left ventricular hypertrophy. * The LV Ejection Fraction = 60-65%. * Grade I diastolic dysfunction, (abnormal relaxation pattern). * There is no significant valvular heart disease. Vital Signs: Date Time Temp Pulse Resp B/P Pulse Ox O2 Delivery O2 Flow Rate FiO2 12/04/16 08:00 Room Air 12/04/16 07:52 36.6 75 18 126/78 95 Room Air 12/04/16 04:25 36.5 76 16 148/78 99 Room Air 12/04/16 04:00 99 Room Air 12/04/16 00:08 36.5 70 18 116/74 96 Room Air 12/04/16 00:00 96 Room Air 12/03/16 20:11 36.4 147 18 115/74 94 Room Air 12/03/16 20:00 94 Room Air 12/03/16 19:00 36.4 74 20 114/70 95 Room Air 12/03/16 18:15 82 16 116/67 99 Room Air 12/03/16 17:18 81 20 140/78 97 Room Air 12/03/16 16:20 74 18 132/80 99 Room Air 12/03/16 16:01 36.4 74 20 144/85 95 Room Air 12/03/16 15:54 74 20 150/80 97 Room Air 12/03/16 15:24 77 18 152/78 99 Room Air 12/03/16 15:11 Room Air 12/03/16 15:00 36.5 70 20 142/89 99 Room Air 12/03/16 14:45 36.5 64 20 143/87 98 Room Air 12/03/16 14:30 65 18 128/78 95 Room Air 12/03/16 14:15 64 16 136/80 95 Room Air 12/03/16 14:00 65 16 140/86 95 Room Air 12/03/16 13:45 65 16 150/98 100 Nasal Cannula 5 12/03/16 13:30 68 16 122/66 100 Nasal Cannula 5 12/03/16 13:20 66 13 120/85 100 Nasal Cannula 5 Lab Results: Results Past 24 Hours Test 12/03/16 11:36 12/03/16 11:57 12/03/16 12:39 12/03/16 14:58 Range/Units Kaolin Activated Coagulation Time 193 224 229 94-140 SECONDS Bedside Glucose 116 70-99 mg/dl Test 12/03/16 16:56 12/03/16 20:23 12/04/16 05:36 12/04/16 06:54 Range/Units Bedside Glucose 143 142 173 70-99 mg/dl White Blood Count 8.14 4.8-10.8 K/uL Red Blood Count 5.02 4.7-6.1 M/uL Hemoglobin 14.6 14.0-18.0 g/dL Hematocrit 42.8 42-52 % Mean Corpuscular Volume 85.3 80-100 fL Mean Corpuscular Hemoglobin 29.1 25-34 pg Mean Corpuscular Hemoglobin Concent 34.1 32-36 g/dl Platelet Count 222 130-400 K/uL Mean Platelet Volume 10.7 7.4-10.4 fL Neutrophils (%) (Auto) 77.2 % Lymphocytes (%) (Auto) 13.6 % Monocytes (%) (Auto) 8.4 % Eosinophils (%) (Auto) 0.5 % Basophils (%) (Auto) 0.2 % Neutrophils # (Auto) 6.28 1.4-6.5 K/uL Lymphocytes # (Auto) 1.11 1.2-3.4 K/uL Monocytes # (Auto) 0.68 0.11-0.59 K/uL Eosinophils # (Auto) 0.04 0-0.5 K/uL Basophils # (Auto) 0.02 0-0.2 K/uL RDW Standard Deviation 44.6 36.4-46.3 fL RDW Coefficient of Variation 14.2 11.5-14.5 % Immature Granulocyte % (Auto) 0.1 % Immature Granulocyte # (Auto) 0.01 0.00-0.02 K/uL Sodium Level 138 136-145 mmol/L Potassium Level 4.4 3.5-5.1 mmol/L Chloride Level 104 98-107 mmol/L Carbon Dioxide Level 30 21-32 mmol/L Anion Gap 4.0 3-11 mmol/L Blood Urea Nitrogen 14 7-18 mg/dl Creatinine 0.86 0.60-1.40 mg/dl Est Creatinine Clear Calc Drug Dose 106.0 ml/min Estimated GFR () 108.5 Estimated GFR (Non- 93.6 BUN/Creatinine Ratio 16.5 10-20 Random Glucose 171 70-99 mg/dl Calcium Level 8.6 8.5-10.1 mg/dl
[2016-12-04] MEDS ORDERED: CLOPIDOGREL BISULFATE 75 MG TAB PO SCH (09:00)
[2016-12-04] MEDS ORDERED: ATORVASTATIN 40 MG TAB PO SCH (09:00)
[2016-12-04] MEDS ORDERED: ASPIRIN 81 MG ECTAB PO STA (09:22)
--- NOTE | 2016-12-04 09:38 | Discharge Instructions ---
Discharge Instructions Date of Service Dec 04, 2016. Admission Reason for Admission: cp/sob Discharge Discharge Diagnosis / Problem: CAD s/p YUE to RCA and LAD Discharge Goals Goal(s): Decrease discomfort, Improve function Activity Recommendations Activity Limitations: per Instructions/Follow-up section Exercise/Sports Limitations: as tolerated ACTIVITY RECOMMENDATIONS: It is common to feel weak and fatigue for a few days. * Do not drive or operate any motorized equipment for the next three days. * Limit stair usage (2 or 3 trips a day only) for the next three days. * Do not lift anything heavier than 10 pounds for the next three days. * Do not engage in vigorous exercise or any sports for the next five days. * You may shower the day after your procedure, but do not immerse the area for three days. Cleanse the site gently with soap and water. SPECIAL CARE INSTRUCTIONS: * You may replace the pressure dressing or band-aid the morning after the procedure. * After your procedure, it is normal to have a small bruise or small lump at the site. Examine your site daily for any change in the bruise or lump, redness, swelling, drainage or numbness. Notify your doctor if any change. BLEEDING: * If there is a small amount of bleeding at the site, lie down and apply firm pressure with a clean cloth for ten minutes. When the bleeding stops, lie quietly keeping the procedure limb straight for six hours. Notify your doctor as soon as possible. * If the bleeding does not stop after ten minutes or if there is a large amount of bleeding or spurting, call 911 immediately. Continue to lie down and hold firm pressure until help arrives. SKIN IRRITATION: * You may experience some redness and/or swelling in the area where radiation was administered. If any skin irritation occurs, please contact your family physician. FOLLOW UP VISIT: Keep any scheduled doctor appointments. . Instructions / Follow-Up Instructions / Follow-Up Follow up with Marlo on 12/11/16 at 10:30 AM Follow up with cardiology on 12/17/16 at 1:25pm Current Hospital Diet Patient's current hospital diet: Diabetes Type 2 Diet, AHA Diet (Heart Healthy) Discharge Diet Recommended Diet: AHA Diet (Heart Healthy), Diabetes Type 2 Diet Procedures Procedures Performed: PCI Pending Studies Studies pending at discharge: no Laboratory Results Lipid Panel Test 12/02/16 06:26 Range/Units Triglycerides Level 149 0-150 mg/dl Cholesterol Level 140 0-200 mg/dl HDL Cholesterol 32 mg/dl Cholesterol/HDL Ratio 4.4 LDL Cholesterol, Calculated 78 mg/dl Medical Emergencies . Who to Call and When: Medical Emergencies: If at any time you feel your situation is an emergency, please call 911 immediately. . Non-Emergent Contact Non-Emergency issues call your: Primary Care Provider, Bead Filler Call Non-Emergent contact if: you have a fever, your pain is not controlled, your pain is worsening, your pain is unusual for you, you have any medication questions . . "Provider Documentation" section prepared by Wallace Gutierrez. VTE Core Measure Inpt VTE Proph given/why not?: Enoxaparin (Lovenox)SQ
[2016-12-04] MEDS ORDERED: METOPROLOL SUCC 25MG EXT REL TAB PO ONE (09:43)
--- NOTE | 2016-12-04 09:46 | Cardiology Follow-Up ---
Subjective General Date of Service: Dec 04, 2016. Chief Complaint: follow up chest discomfort Pt evaluation today including: conversation w/ patient, physical exam, chart review, lab review, review of studies, conversation w/ infrastructure consultant, review of inpatient medication list History of Present Illness The patient is a 61 year old male seen in follow up. Patient is feeling well today. Denies chest pain or SOB. Tolerating diet and medications. Offers no complaints. Allergies Uncoded Allergies: STERIODS (Allergy, Unknown, "UNABLE TO USE DUE TO TB RX YEARS AGO"., ) Social History Smoking Status: Never Smoker Hx Tobacco Use In Past Year?: No Hx Alcohol Use - Type And Amou: No Hx Substance Use - Type And Am: No Review of Systems Respiratory: No cough, No dyspnea at rest, No dyspnea on exertion, No hemoptysis, No shortness of breath, No sputum, No wheezing Cardiac: No PND, No chest pain, No claudication, No edema, No orthopnea, No palpitations Physical Exam Vital Signs Last Vital Signs Documentation Date Time Temp Pulse Resp B/P Pulse Ox O2 Delivery O2 Flow Rate FiO2 12/04/16 08:00 Room Air 12/04/16 07:52 36.6 75 18 126/78 95 12/03/16 13:45 5 Physical Exam Constitutional: Level of Distress: NAD Head: normocephalic, atraumatic ENMT: pertinent finding (Poor dentition) Neck: supple Lungs: Auscultation: breath sounds normal, no wheezing, no rales/crackles, no rhonchi Cardiovascular: Heart Auscultation: RRR, no murmurs, no rubs, no gallops Peripheral Pulses: Radial Pulse: normal on the left, normal on the right Femoral Pulse: normal on the left, normal on the right Abdomen: Bowel Sounds: normal Inspection & Palpation: soft, non-distended, no tenderness, guarding & rebound Extremities: no cyanosis, no edema, no clubbing, no ulcers Neurologic: Gait & Station: pertinent finding (no focal deficits ) Assessment and Plan Assessment and Plan Imp: 1. CAD s/p YUE to RCA and LAD 2. Dyslipidemia - atorvastatin titrated to 80mg 3. HTN - controlled 4. DM-2 5. Family history of CAD Plan/Recommendations: Reviewed importance of continuing plavix for a minimum of one year post - PCI and aspirin lifelong. Add toprol XL 25mg daily. Continue lisinopril and high dose atorvastatin. Post procedure activity restrictions reviewed. Patient will return to work next Wednesday. I will see him in clinic for follow up in 2-4 weeks. Laboratory Results Last 24 Hours Test 12/03/16 11:36 12/03/16 11:57 12/03/16 12:39 12/03/16 14:58 Kaolin Activated Coagulation Time 193 SECONDS 224 SECONDS 229 SECONDS Bedside Glucose 116 mg/dl Test 12/03/16 16:56 12/03/16 20:23 12/04/16 05:36 12/04/16 06:54 Bedside Glucose 143 mg/dl 142 mg/dl 173 mg/dl White Blood Count 8.14 K/uL Red Blood Count 5.02 M/uL Hemoglobin 14.6 g/dL Hematocrit 42.8 % Mean Corpuscular Volume 85.3 fL Mean Corpuscular Hemoglobin 29.1 pg Mean Corpuscular Hemoglobin Concent 34.1 g/dl Platelet Count 222 K/uL Mean Platelet Volume 10.7 fL Neutrophils (%) (Auto) 77.2 % Lymphocytes (%) (Auto) 13.6 % Monocytes (%) (Auto) 8.4 % Eosinophils (%) (Auto) 0.5 % Basophils (%) (Auto) 0.2 % Neutrophils # (Auto) 6.28 K/uL Lymphocytes # (Auto) 1.11 K/uL Monocytes # (Auto) 0.68 K/uL Eosinophils # (Auto) 0.04 K/uL Basophils # (Auto) 0.02 K/uL RDW Standard Deviation 44.6 fL RDW Coefficient of Variation 14.2 % Immature Granulocyte % (Auto) 0.1 % Immature Granulocyte # (Auto) 0.01 K/uL Sodium Level 138 mmol/L Potassium Level 4.4 mmol/L Chloride Level 104 mmol/L Carbon Dioxide Level 30 mmol/L Anion Gap 4.0 mmol/L Blood Urea Nitrogen 14 mg/dl Creatinine 0.86 mg/dl Est Creatinine Clear Calc Drug Dose 106.0 ml/min Estimated GFR () 108.5 Estimated GFR (Non- 93.6 BUN/Creatinine Ratio 16.5 Random Glucose 171 mg/dl Calcium Level 8.6 mg/dl
[2016-12-04] MEDS ORDERED: PLV75 PO (09:53)
[2016-12-04] MEDS ORDERED: ASPEC81 PO (09:53)
[2016-12-04] MEDS ORDERED: TPRSR25 PO (09:53)
[2016-12-04] MEDS ORDERED: LPT40 PO (09:53)
--- NOTE | 2016-12-04 10:00 | Discharge Summary ---
Discharge Summary Date of Service Dec 04, 2016. Discharge Summary Admission Date: Dec 04, 2016 at 08:32 Discharge Date: Dec 04, 2016 Discharge Disposition: Home Principal Diagnosis: CAD s/p YUE to RCA and LAD Procedures: PCI of proximal RCA and mid LAD with YUE Consultations: Cardiology Pending Studies/Follow-Up: Follow up with Marlo on 12/11/16 at 10:30 AM Follow up with cardiology on 12/17/16 at 1:25pm Medication Reconciliation New Medications: Aspirin (Aspirin EC Low Dose) 81 Mg Ectab 81 MG PO QAM for 30 Days, #30 1 Refill Atorvastatin (Atorvastatin Calcium) 40 Mg Tab 80 MG PO DAILY for 30 Days, #60 TAB 1 Refill Clopidogrel Bisulfate (Clopidogrel) 75 Mg Tab 75 MG PO QAM for 30 Days, #30 TAB 1 Refill Metoprolol Succinate (Metoprolol Succinate ER) 25 Mg Tabcr 25 MG PO QAM for 30 Days, #30 1 Refill Continued Medications: Acetaminophen (Tylenol) 500 Mg Tab 1000 MG PO TID PRN for Pain or Fever, 0 Refills Fish Oil ([employer]-3) 1 Ea Cap 1 CAP PO BID, 0 Refills Glyburide (Micronase) 5 Mg Tab 10 MG PO BID, TAB Lisinopril (Zestril) 10 Mg Tab 10 MG PO DAILY, 0 Refills Metformin Hcl (Glucophage) 1,000 Mg Tab 1000 MG PO BID, TAB Omeprazole (Prilosec) 40 Mg Cap 20 MG PO DAILY PRN for Indigestion, CAP Ranitidine (Zantac) 150 Mg Tab 150 MG PO BID, 0 Refills Sulindac (Clinoril) 200 Mg Tab 200 MG PO BID, TAB Tramadol (Ultram) 50 Mg Tab 50 MG PO Q8H PRN for Pain, TAB Discontinued Medications: Atorvastatin (Lipitor) 10 Mg Tab 10 MG PO DAILY, TAB Admission Information HPI (per Admitting provider): 61 year old male who presents to the ER with chest pain and shortness of breath. 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 He describes the chest pain as a pressure and rated it #7/10 at its worst. He reports associated shortness of breath and lightheadedness. He reports the pain resolved with rest but the shortness of breath persisted for a bit. He reports the shortness of breath resolved in the ambulance ride to the hospital. He denies associated nausea or diaphoresis. Patient reports he does get exertional chest pain a few times per week however is not as severe as it was today. He reports he had a stress test a couple of years ago for similar symptoms. Over the past 6 months he has noted leg edema with long periods of walking. He denies orthopnea. He reports he otherwise has been feeling well recently. No abdominal pain, vomiting, or diarrhea. He denies fever and chills. No urinary symptoms. In the ER, patient is currently chest pain free. His initial troponin is negative and EKG is unchanged from prior. Physical Exam (per Admitting): General Appearance: no apparent distress Head: normocephalic Eyes: normal inspection ENT: hearing grossly normal Neck: supple, no JVD Respiratory/Chest: lungs clear, normal breath sounds, no respiratory distress Cardiovascular: regular rate, rhythm, no edema, normal peripheral pulses Abdomen/GI: normal bowel sounds, non tender, soft Extremities/Musculoskelatal: normal inspection, no calf tenderness Neurologic/Psych: no motor/sensory deficits, alert, normal mood/affect, oriented x 3 Skin: normal color, warm/dry Hospital Course Angina: S/P PCI Risk factors: HTN, DM, HLD, + family history Troponin X2: Negative Normal EKG and and normal stress wall motion on stress test Appreciate Cardiology help Continue Aspirin, Plavix, statins, BB Cardiac Cath S/P PCI: POD #1 PCI of proximal RCA and mid LAD with YUE HTN controlled continue Lisinopril, BB DM Last hgb a1c 6.4 08/2016 hold oral agents Continue SSI, Accu checks HLD continue statin DVT PROPHYLAXIS Lovenox on hold post procedure SCDs DISPOSITION Plan to discharge home today Follow up with Marlo on 12/11/16 at 10:30 AM Follow up with cardiology on 12/17/16 at 1:25pm PROCEDURES: ECHO: * STRESS STUDY: * Normal ECG and echocardiographic response to pharmacologic stress. * The patient's presenting symptom of chest pressure was reproduced and progressed from a 4/10 intensity to a 7/10 intensity with increased dobutamine dose. * The test was therefore terminated due to chest pressure with the patient having achieved a maximum heart rate of 135 bpm which is 77% of the age predicted maximum. * Despite normal wall motion, the clinical presentation is suggestive of significant underlying coronary heart disease. * RESTING STUDY: * There is mild concentric left ventricular hypertrophy. * The LV Ejection Fraction = 60-65%. * Grade I diastolic dysfunction, (abnormal relaxation pattern). * There is no significant valvular heart disease. Total time spent on discharge = 35 minutes This includes examination of the patient, discharge planning, medication reconciliation, and communication with other providers. Discharge Instructions Discharge Instructions Date of Service Dec 04, 2016. Admission Reason for Admission: cp/sob Discharge Discharge Diagnosis / Problem: CAD s/p YUE to RCA and LAD Discharge Goals Goal(s): Decrease discomfort, Improve function Activity Recommendations Activity Limitations: per Instructions/Follow-up section Exercise/Sports Limitations: as tolerated ACTIVITY RECOMMENDATIONS: It is common to feel weak and fatigue for a few days. * Do not drive or operate any motorized equipment for the next three days. * Limit stair usage (2 or 3 trips a day only) for the next three days. * Do not lift anything heavier than 10 pounds for the next three days. * Do not engage in vigorous exercise or any sports for the next five days. * You may shower the day after your procedure, but do not immerse the area for three days. Cleanse the site gently with soap and water. SPECIAL CARE INSTRUCTIONS: * You may replace the pressure dressing or band-aid the morning after the procedure. * After your procedure, it is normal to have a small bruise or small lump at the site. Examine your site daily for any change in the bruise or lump, redness, swelling, drainage or numbness. Notify your doctor if any change. BLEEDING: * If there is a small amount of bleeding at the site, lie down and apply firm pressure with a clean cloth for ten minutes. When the bleeding stops, lie quietly keeping the procedure limb straight for six hours. Notify your doctor as soon as possible. * If the bleeding does not stop after ten minutes or if there is a large amount of bleeding or spurting, call 911 immediately. Continue to lie down and hold firm pressure until help arrives. SKIN IRRITATION: * You may experience some redness and/or swelling in the area where radiation was administered. If any skin irritation occurs, please contact your family physician. FOLLOW UP VISIT: Keep any scheduled doctor appointments. . Instructions / Follow-Up Instructions / Follow-Up Follow up with Marlo on 12/11/16 at 10:30 AM Follow up with cardiology on 12/17/16 at 1:25pm Current Hospital Diet Patient's current hospital diet: Diabetes Type 2 Diet, AHA Diet (Heart Healthy) Discharge Diet Recommended Diet: AHA Diet (Heart Healthy), Diabetes Type 2 Diet Procedures Procedures Performed: PCI Pending Studies Studies pending at discharge: no Laboratory Results Lipid Panel Test 12/02/16 06:26 Range/Units Triglycerides Level 149 0-150 mg/dl Cholesterol Level 140 0-200 mg/dl HDL Cholesterol 32 mg/dl Cholesterol/HDL Ratio 4.4 LDL Cholesterol, Calculated 78 mg/dl Medical Emergencies . Who to Call and When: Medical Emergencies: If at any time you feel your situation is an emergency, please call 911 immediately. . Non-Emergent Contact Non-Emergency issues call your: Primary Care Provider, Flight Radio Operator Call Non-Emergent contact if: you have a fever, your pain is not controlled, your pain is worsening, your pain is unusual for you, you have any medication questions . . "Provider Documentation" section prepared by Wallace Gutierrez. VTE Core Measure Inpt VTE Proph given/why not?: Enoxaparin (Lovenox)SQ
[2016-12-05] MEDS ORDERED: METOPROLOL SUCC 25MG EXT REL TAB PO SCH (09:00)
[2016-12-05] MEDS ORDERED: ASPIRIN 81 MG ECTAB PO SCH (09:00)
[2017-07-22] MEDS ORDERED: MELATAB2 PO (07:20)
[2017-07-22] MEDS ORDERED: ISOS30TA3 PO (07:20)
[2017-07-22] MEDS ORDERED: PRAS1TAB6 PO (07:20)
[2017-07-22] MEDS ORDERED: PRAV20TA PO (07:20)
[2017-07-22] MEDS ORDERED: NTRGSL/4 UT (07:20)
== END 2016-12-04 13:05 | disposition home or self-care (01) | DRG 247 ==
LOC: ENRESERVTM → ENRESERVDT → EDBD 03:44 → C.EDB 03:44 → UNDOADMOB 08:17 → C.EDINP 08:17 → C.MED 13:10 → C.2T 12-03 14:46 → OBSVTOIN 12-04 08:32
PROVIDERS: ADMIT Internal Medicine; ATTEND Internal Medicine
PROC: 4A023N7 Measurement of Cardiac Sampling and Pressure, Left Heart, Percutaneous Approach (ICD-10-PCS; 2016-12-03)
PROC: B2111ZZ Fluoroscopy of Multiple Coronary Arteries using Low Osmolar Contrast (ICD-10-PCS; 2016-12-03)
PROC: 4A033BC Measurement of Arterial Pressure, Coronary, Percutaneous Approach (ICD-10-PCS; principal; 2016-12-03 10:12)
PROC: 3E03317 Introduction of Other Thrombolytic into Peripheral Vein, Percutaneous Approach (ICD-10-PCS; principal; 2016-12-03 10:12)
PROC: 027034Z Dilation of Coronary Artery, One Artery with Drug-eluting Intraluminal Device, Percutaneous Approach (ICD-10-PCS; principal; 2016-12-03 10:12)
DX: I25.119 Atherosclerotic heart disease of native coronary artery with unspecified angina pectoris (principal); I10 Essential (primary) hypertension; E11.9 Type 2 diabetes mellitus without complications; Z98.1 Arthrodesis status; E78.5 Hyperlipidemia, unspecified; K21.9 Gastro-esophageal reflux disease without esophagitis; E66.9 Obesity, unspecified; Z68.33 Body mass index [BMI] 33.0-33.9, adult

== ENCOUNTER → 2017-07-22 | Day surgery (SDC) | payer BC ==
[~2017-07-22] VITALS: Ht 177.8 cm; Wt 105.0 kg
[~2017-07-22] MED LIST changes: +ASPEC81 PO; -CLN200 PO; +FENTANYL CITRATE INJ 50 MCG/1 ML 2 ML VIAL ONE; -GLC500 PO; +GLYB5TAB8 PO; -GLYUNK; +HEPARIN SOD (PORCINE) 1000 UNIT/ML 10 ML VIAL ONE; +ISOS30TA3 PO; +LPT40 PO; +MELATAB2 PO; +METF-384 PO; +MIDAZOLAM HCL 1 MG/ML 2ML VIAL ONE; +NITROGLYCERIN/D5W 100MCG/ML 20ML SYR ONE; +NTRGSL/4 UT; +NiCARDipine HCL INJ 2.5 MG/ML 10 ML AMP ONE; +OMEP40CA41 PO; +PLV75 PO; +PRAS1TAB6 PO; +PRAV20TA PO; +SULI200T4 PO; +TPRSR25 PO; +TRAM-10 PO
[2017-07-22 07:05] VITALS: Ht 177.8 cm; Wt 105.0 kg
[2017-07-22 07:06] VITALS: BP 155/74; PULSE 71; TEMP 36.9; O2SAT 99
--- NOTE | 2017-07-22 09:07 | History & Physical Bridge Note ---
H&P Re-Evaluation Bridge Note: I have examined the patient, reviewed the History & Physical and in the interval since the performance of the History & Physical I have noted the following changes of clinical significance: No changes noted
--- NOTE | 2017-07-22 09:08 | Procedure Note ---
Pre-Mod Sedation Assessment General Date of Moderate Sedation: Jul 22, 2017. Vital Signs: Vital Signs Past 12 Hours Date Time Temp Pulse Resp B/P (MAP) Pulse Ox O2 Delivery O2 Flow Rate FiO2 07/22/17 09:00 67 16 122/69 (86) 94 Mask 3 07/22/17 08:50 64 16 120/60 (80) 98 Mask 3 07/22/17 07:06 36.9 71 18 155/74 99 Room Air Review Cardiovascular: regular rate, rhythm, no edema, no murmur Abdomen: normal bowel sounds, non tender, soft Lungs: chest non-tender, lungs clear, normal breath sounds Pre-Sedation Airway Assessment Oral Cavity: WNL Short Thick Neck: No Hx of Sleep Apnea: No Smoking Status: Never Smoker Mallampati Classification: Class III ASA Classification: Class III Procedure Planning Contraindications-for Mod Sed: None Yes Notes The planned sedation has been discussed with the patient and consent obtained. I have identified the patient, determined the appropriateness of sedation and have assessed the patient immediately prior to the procedure. All medicine(s) and interventions are by my order.
--- NOTE | 2017-07-22 09:09 | Procedure Note ---
Post-Mod Sedation Assessment General Date of Moderate Sedation Jul 22, 2017. Vital Signs: Vital Signs Past 12 Hours Date Time Temp Pulse Resp B/P (MAP) Pulse Ox O2 Delivery O2 Flow Rate FiO2 07/22/17 09:00 67 16 122/69 (86) 94 Mask 3 07/22/17 08:50 64 16 120/60 (80) 98 Mask 3 07/22/17 07:06 36.9 71 18 155/74 99 Room Air Review - Discharge Criteria Vital Signs Stable: Yes Alert/Oriented/Conversant: Yes Returned to Baseline Mental St: Yes Nausea Absent/Minimal: Yes Pain/Discomfort/Absent/Minimal: Yes Normal/Baseline Respirations: Yes Active Bleeding?: No Pt Received D/C Instructions: Yes Prescriptions Given: None Specific Proced. D/C Criteria Distal Pulses Present (Cardiac: Yes Groin site assessed-Card Cath: No Voided Prior To Discharge: N/A Discharged Patients Adult Escort/Transportation: Yes
--- NOTE | 2017-07-22 09:26 | Cardiac Catheterization ---
Procedure Note Procedure Date Jul 22, 2017. Pre-Procedure Diagnosis Angina AUC Score 8 Post-Procedure Diagnosis Moderate CAD Procedure(s) Performed Coronary Angiography, Left Heart Cath Manager Pricing Dr. Covington Debt Management Counselor(s) Jenise WIRE HARNESS DESIGN ENGINEER Estimated Blood Loss 5cc Medication(s) Fentanyl, Heparin, Nicardipine, Nitroglycerin, Versed, Lidocaine 1% Summary of Findings Patent LAD and and RCA stents. Branch vessel CAD - D2 and OM Hemodynamics Rest Ao: 96/54/72 Final Ao: 112/62/85 LV: 102/-1/3 Recommendations Medical therapy and/or Counseling Specimens None Radiation Exposure (mGy) 2163 Contrast (mls) 100 Anesthesia Moderate sedation. Start 0809. End 0850. Sedation monitor Ian MONAE Procedural Complication(s) None Disposition Production Recovery Operator Holding/Recovery ACC Data Cardiac Status Clinical evaluation leading to the procedure CAD Presntation: Unstable angina Anginal Classification: CCS II Heart Failure: No Cardiogenic Shock w/in 24Hrs: No Cardiac Arrest w/in 24Hrs: No Imaging studies past 6 months: No Stress studies past 6 months: Yes Stress Echocardiogram: Yes - Indeterminant Coronary Anatomy Dominant: Right Left Main (% Stenosis): Normal LAD (% Stenosis): Mid (patent stent), Distal (20%) D1 (% Stenosis): Distal (10%) D2 (% Stenosis): Ostial (70% 'covered' by LAD stent) Circumflex (% Stenosis): Distal (30%) OM1 (% Stenosis): Ostial (70%) L PL1 (% Stenosis): Ostial (small vessel), Normal L PL2 (% Stenosis): Ostial (large vessel), Normal RCA (% Stenosis): Proximal (30% followed by patent stent), Mid (30%), Distal ( 20%, flow artifact noted in one injection not visualized in alternate views) R PDA (% Stenosis): Ostial (small vessel with ostial disease not well visualized and HERIBERTO 2 flow) R PL1 (% Stenosis): Normal R PL2 (% Stenosis): Normal Diagnostic Status: Elective Closure Device Percutaneous Entry Location: Radial Closure Device: Radial Band Recommendations: Medical therapy and/or Counseling Intraprocedure Events Significant Dissection: No Perforation: No
--- NOTE | 2017-07-22 09:29 | Discharge Instructions ---
Discharge Instructions Procedure Procedure Date: Jul 22, 2017. Reason for Visit: Chest Pain * To Do*. Discharge Discharge Date: Jul 22, 2017. Discharge Diagnosis: Status post cardiac catheterization. Patent LAD and RCA stents Last Recorded Wt (Kilograms): 105 Anesthesia Post Anesthesia Instructions: If you have had General Anesthesia or IV Sedation: * Do not drive today. * Resume driving when surgeon permits. * Do not make important decisions or sign legal documents today. * Call surgeon for: 1. Temperature elevations greater than 101 degrees F. 2. Uncontrollable pain. 3. Excessive bleeding. 4. Persistent nausea and vomiting. 5. Medication intolerance (nausea, vomiting or rash). * For nausea and vomiting use only clear liquids such as: tea, soda, bouillon until nausea subsides, then gradually increase diet as tolerated. * If you have any concerns or questions, call your surgeon's office. If physician is unavailable and it is an emergency, call 911 or go to the nearest emergency room. Instructions Activity Recommendations: limitations as noted below Return to School/Work: with the following limitations (Patient may return to work 07/27/17) Recommended Home Diet: low cholesterol, diabetes diet Allergies: Uncoded Allergies: STERIODS (Allergy, Unknown, "UNABLE TO USE DUE TO TB RX YEARS AGO"., ) Provider Instructions ACTIVITY RECOMMENDATIONS: Excess manipulation of the wrist should be avoided for the next 24-48 hours. * No lifting over 2 pounds (approximately a 1/2 gallon of milk) with the utilized arm for 24 hours. * No strenuous activity such as bowling or tennis for 3 days. * Keep the site of the procedure covered with a bandage for 24 hours. *You may shower the day after the procedure. Do not take a tub bath or submerge the puncture site in water for the next 3 days. *Do not operate any motorized equipment for 3 days. SPECIAL CARE INSTRUCTIONS: The site may be slightly bruised and sore following your procedure. Should any of the following occur, contact the DrSheyla who performed your procedure. 1. Redness/inflammation, swelling, chills, or fever, or colored drainage at procedure site within 3-7 days after your procedure. 2. Coldness, discoloration, ongoing numbness, severe pain, or swelling. Expect mild tingling of hand and tenderness at the puncture site for up to three days. If this persists beyond three days, or other symptoms develop, notify the Dr. who performed your procedure. BLEEDING: If the procedure site on your wrist begins to bleed, do not panic 1. Place 1 or 2 fingers firmly just slightly above the insertion site to stop the bleeding. You may be able to feel your pulse as you hold pressure. 2. Lift your finger after 5 minutes to see if the bleeding has stopped. 3. Once the bleeding has stopped, gently wipe the wrist area clean with a bandage. * If the bleeding from your wrist does not stop after 10 minutes, or if there is a large amount of bleeding or spurting, call 911 ([address] drive yourself to the hospital). SKIN IRRITATION: * You may experience some redness and/or swelling in the area where radiation was administered. If any skin irritation occurs, please contact your family physician. FOLLOW UP VISIT: Keep any scheduled doctor appointments. Follow Up Follow-up with: Dr. Covington as scheduled [facility] Recommendations: Call your doctor if: * Temperature above 101 degrees * Pain not relieved by pain medicine ordered * There is increased drainage or redness from any incision * You have any unanswered questions or concerns. Your Doctors Instructions noted above were prepared by provider Antoni Covington. Patient Signature Section: Patient Instructions Signature Page [facility] [place] Patient (or Guardian) Signature/Date: I have read and understand the instructions given to me by my caregivers. Caregiver/RN/Doctor Signature/Date: The above-named patient and/or guardian has received patient instructions on this date. + Original Patient Signature Page (only) stays with chart. Please make copy for patient.
[2017-07-22 11:20] VITALS: BP 118/64; O2SAT 94
== END | disposition home or self-care (01) ==
LOC: C.CATH 06:33
PROVIDERS: ATTEND Internal Medicine Cardiovascular Disease
DX: I25.10 Atherosclerotic heart disease of native coronary artery without angina pectoris (principal); Z95.818 Presence of other cardiac implants and grafts; E11.9 Type 2 diabetes mellitus without complications; E78.5 Hyperlipidemia, unspecified; I10 Essential (primary) hypertension; I25.118 Atherosclerotic heart disease of native coronary artery with other forms of angina pectoris; Z79.02 Long term (current) use of antithrombotics/antiplatelets; Z79.84 Long term (current) use of oral hypoglycemic drugs